=== PATIENT | female | born 1935 | race Caucasian/White ===

== ENCOUNTER 2017-04-10 17:03 | Inpatient (IN) | payer MEDICARE, BC ==
[2017-04-10] MEDS ORDERED: Phenazopyridine 95 MG Tab PO ONE (17:35)
[2017-04-10] MEDS ORDERED: Sodium Chloride 0.9% 1,000 ML IV SCH (18:15)
--- NOTE | 2017-04-10 18:19 | EDM.PDOC ---
ED HPI GENERAL MEDICAL PROBLEM - General Chief Complaint: Genitourinary Problem Stated Complaint: ILLNESS Time Seen by Provider: 04/10/17 18:13 Source of Information: Reports: Patient, Family (daughter) History Limitations: Reports: Altered Mental Status - History of Present Illness INITIAL COMMENTS - FREE TEXT/NARRATIVE: Pt being treated for UTI with Bactrim on the 10th. Became ill and stopped taking it. Was seen in the clinic yesterday. Given Rx for Cipro. Had 1 dose today. Feels extreme urinary pressure. Is very weak. Notes blood in the urine and only voiding small amounts. No fever. Daughter notes mild confusion and poor appetite for the last several days. No vomiting. Onset: Gradual Duration: Getting Worse Location: Reports: Generalized Quality: Reports: Ache, Burning, Pressure Severity: Moderate Improves with: Reports: None Worsens with: Reports: None Context: Reports: Other Associated Symptoms: Reports: Confusion, Loss of Appetite Bladder Pain Score (Numeric/FACES): 9 - Related Data Allergies Allergy/AdvReac Type Severity Reaction Status Date / Time tetracycline Allergy Dizziness Verified 04/10/17 18:58 valacyclovir [From Valtrex] Allergy Nausea Verified 04/10/17 18:58 Home Meds: Home Meds Aspirin [Halfprin] 81 mg PO DAILY 04/10/17 [History] Ciprofloxacin HCl [Cipro] 250 mg PO BID 04/10/17 [History] Lisinopril/Hydrochlorothiazide [Lisinopril-Hctz 10-12.5 mg Tab] 1 tab PO BID [History] Metoprolol Tartrate [Lopressor] 50 mg PO BID 04/10/17 [History] Simvastatin [Zocor] 40 mg PO BEDTIME 04/10/17 [History] amLODIPine [Norvasc] 2.5 mg PO BID 04/10/17 [History] Past Medical History HEENT History: Reports: Hard of Hearing, Impaired Vision Cardiovascular History: Reports: CAD, High Cholesterol, Hypertension Psychiatric History: Reports: Anxiety - Infectious Disease History Infectious Disease History: Reports: Chicken Pox, Measles, Shingles - Past Surgical History Cardiovascular Surgical History: Reports: Carotid Endarterectomy Female Surgical History: Reports: Nephrectomy Other Female Surgeries/Procedures: l nephrectomy 2006 Social & Family History - Tobacco Use Smoking Status *Q: Current Every Day Smoker Years of Tobacco use: 60 Packs/Tins Daily: 1 Used Tobacco, but Quit: No Second Hand Smoke Exposure: No - Caffeine Use Caffeine Use: Reports: Coffee, Tea - Recreational Drug Use Recreational Drug Use: No ED ROS GENERAL - Review of Systems Review Of Systems: See Below Constitutional: Reports: Malaise, Weakness, Decreased Appetite HEENT: Reports: No Symptoms Respiratory: Reports: No Symptoms Cardiovascular: Reports: No Symptoms GI/Abdominal: Reports: No Symptoms : Reports: Dysuria, Frequency, Hematuria, Urgency Musculoskeletal: Reports: Other (generalized weakness) Neurological: Reports: Confusion (mild) ED EXAM, RENAL/ - Physical Exam Exam: See Below Exam Limited By: Altered Mental Status (mild confusion) General Appearance: Alert, Mild Distress Ears: Normal External Exam, Normal Canal, Hearing Grossly Normal, Normal TMs Nose: Normal Inspection, Normal Mucosa, No Blood Throat/Mouth: Normal Inspection, Normal Lips, Normal Teeth, Normal Gums, Normal Oropharynx, Normal Voice, No Airway Compromise Head: Atraumatic, Normocephalic Neck: Normal Inspection, Supple, Non-Tender, Full Range of Motion Respiratory/Chest: No Respiratory Distress, Lungs Clear, Normal Breath Sounds, No Accessory Muscle Use, Chest Non-Tender Cardiovascular: Normal Peripheral Pulses, Regular Rate, Rhythm, No Edema, No Gallop, No JVD, No Murmur, No Rub GI/Abdominal: Distended Extremities: Normal Inspection, Normal Range of Motion, Non-Tender, Normal Capillary Refill, No Pedal Edema Neurological: Alert, Oriented, CN II-XII Intact, Normal Cognition, Normal Gait, Normal Reflexes, No Motor/Sensory Deficits Course - Vital Signs Last Recorded V/S: Last Vital Signs Temp 97.3 F 04/10/17 18:38 Pulse 97 04/10/17 18:38 Resp 20 04/10/17 18:38 BP 111/54 L 04/10/17 18:38 Pulse Ox 94 L 04/10/17 18:38 - Orders/Labs/Meds Orders: Active Orders 24 hr Category Date Time Status Patient Status Manage Transfer [TRANSFER] Routine ADT 04/10/17 18:56 Active Bladder Scan [RC] ONETIME Care 04/10/17 18:31 Active CULTURE URINE [RM] Stat Lab 04/10/17 17:34 Uncollected UA W/MICROSCOPIC [URIN] Stat Lab 04/10/17 17:33 Uncollected Sodium Chloride 0.9% [Normal Saline] 1,000 ml Med 04/10/17 18:15 Active IV .BOLUS Sodium Chloride 0.9% [Normal Saline] 1,000 ml Med 04/10/17 19:00 Active IV ASDIRECTED cefTRIAXone [Rocephin] 1 gm Med 04/10/17 19:00 Active Sodium Chloride 0.9% [Normal Saline] 50 ml IV Q24H Resuscitation Status Routine Resus Stat 04/10/17 18:57 Ordered Medication Orders Sodium Chloride (Normal Saline) 1,000 mls @ 500 mls/hr IV .BOLUS DION Last Admin: 04/10/17 18:19 Dose: 500 mls/hr Sodium Chloride (Normal Saline) 1,000 mls @ 125 mls/hr IV ASDIRECTED DION Ceftriaxone Sodium 1 gm/ (Sodium Chloride) 50 mls @ 100 mls/hr IV Q24H [facility] Labs: Laboratory Tests 04/10/17 04/10/17 04/10/17 Range/Units 17:35 17:35 18:22 WBC 17.7 H (4.5-11.0) K/uL RBC 3.45 (3.30-5.50) M/uL Hgb 9.7 L (12.0-15.0) g/dL Hct 27.6 L (36.0-48.0) % MCV 80 (80-98) fL MCH 28 (27-31) pg MCHC 35 (32-36) % Plt Count 479 H (150-400) K/uL Neut % (Auto) 91 H (36-66) % Lymph % (Auto) 5 L (24-44) % [place] % (Auto) 4 (2-6) % Eos % (Auto) 0 L (2-4) % Baso % (Auto) 0 (0-1) % Sodium 106 L* (140-148) mmol/L Potassium 5.0 (3.6-5.2) mmol/L Chloride 74 L (100-108) mmol/L Carbon Dioxide 20 L (21-32) mmol/L Anion Gap 17.0 H (5.0-14.0) mmol/L BUN 25 H (7-18) mg/dL Creatinine 1.2 H (0.6-1.0) mg/dL Est Cr Clr Drug Dosing 26.80 mL/min Estimated GFR (MDRD) 43 L (>60) Glucose 177 H (74-106) mg/dL Lactic Acid 1.7 (0.4-2.0) mmol/L Calcium 8.6 (8.5-10.1) mg/dL Meds: Medications Generic Name Dose Route Start Last Admin Trade Name Freq PRN Reason Stop Dose Admin Sodium Chloride 1,000 mls @ 500 mls/hr 04/10/17 18:15 04/10/17 18:19 Normal Saline IV 500 mls/hr .BOLUS DION Administration Sodium Chloride 1,000 mls @ 125 mls/hr 04/10/17 19:00 Normal Saline IV ASDIRECTED DION Ceftriaxone Sodium 1 gm/ 50 mls @ 100 mls/hr 04/10/17 19:00 Sodium Chloride IV Q24H DION Discontinued Medications Generic Name Dose Route Start Last Admin Trade Name Freq PRN Reason Stop Dose Admin Phenazopyridine HCl 95 mg 04/10/17 17:35 04/10/17 18:11 Urinary Pain Relief PO 04/10/17 17:36 95 mg ONETIME ONE Administration Departure - Departure Time of Disposition: 19:16 Disposition: Admitted As Inpatient 65 Condition: Fair Clinical Impression: UTI, Urinary tract infectious disease, Hyponatremia - Discharge Information Referrals: Ebenezer Armas NP [Primary Care Provider] - Forms: ED Department Discharge Additional Instructions: Labs with elevated WBC. Hyponatremia significant. Kidney function stable. UA pending. Bladder scan shows 650ml urine residual post void. IV NS initiated. Hospitalist consulted for admission. Pt agrees with plan today. Admitted for hydration, antibiotics and workup for elevated WBC. - Problem List Review Problem List Initiated/Reviewed/Updated: Yes - My Orders Last 24 Hours: My Active Orders 04/10/17 17:33 UA W/MICROSCOPIC [URIN] Stat 04/10/17 17:34 CULTURE URINE [RM] Stat 04/10/17 18:15 Sodium Chloride 0.9% [Normal Saline] 1,000 ml IV .BOLUS 04/10/17 18:31 Bladder Scan [RC] ONETIME - Assessment/Plan Last 24 Hours: My Active Orders 04/10/17 17:33 UA W/MICROSCOPIC [URIN] Stat 04/10/17 17:34 CULTURE URINE [RM] Stat 04/10/17 18:15 Sodium Chloride 0.9% [Normal Saline] 1,000 ml IV .BOLUS 04/10/17 18:31 Bladder Scan [RC] ONETIME
--- NOTE | 2017-04-10 19:06 | PCM.HP ---
H&P History of Present Illness - General Date of Service: 04/10/17 Admit Problem/Dx: Admission Diagnosis/Problem Admission Diagnosis/Problem Hyponatremia Source of Information: Patient, Family, Provider History Limitations: Reports: No Limitations - History of Present Illness Initial Comments - Free Text/Narative: Nisreen presents to the emergency room today with weakness, nausea and dehydration. She reports that she has not had much of an appetite for the past 2 weeks and it seems to be getting worse. She has had nothing to eat or drink for the past 2 days. She feels extremely weak and fatigued. She has ongoing difficulty with urinary urgency despite being on 2 different antibiotics for a urinary tract infection. She was on Bactrim for several days and then switched to ciprofloxacin yesterday but has had only one dose of this medication. She has difficulty eating because of fairly constant nausea. She does not report headache, cough, shortness of breath or abdominal pain. She has not had diarrhea. No lower extremity edema. She's not aware of any fevers or chills. Workup in the emergency room revealed severe hyponatremia with a sodium of 106. She has leukocytosis as well as signs of significant dehydration. Fortunately her kidney function is near baseline. She has hematuria probably related to a urinary tract infection. She will be admitted to the intensive care unit for further management. Bladder Pain Score (Numeric/FACES): 9 - Related Data Allergies/Adverse Reactions: Allergies Allergy/AdvReac Type Severity Reaction Status Date / Time tetracycline Allergy Dizziness Verified 04/10/17 18:58 valacyclovir [From Valtrex] Allergy Nausea Verified 04/10/17 18:58 Home Medications: Home Meds Aspirin [Halfprin] 81 mg PO DAILY 04/10/17 [History] Ciprofloxacin HCl [Cipro] 250 mg PO BID 04/10/17 [History] Lisinopril/Hydrochlorothiazide [Lisinopril-Hctz 10-12.5 mg Tab] 1 tab PO BID [History] Metoprolol Tartrate [Lopressor] 50 mg PO BID 04/10/17 [History] Simvastatin [Zocor] 40 mg PO BEDTIME 04/10/17 [History] amLODIPine [Norvasc] 2.5 mg PO BID 04/10/17 [History] Past Medical History HEENT History: Reports: Hard of Hearing, Impaired Vision Cardiovascular History: Reports: CAD, High Cholesterol, Hypertension Psychiatric History: Reports: Anxiety - Infectious Disease History Infectious Disease History: Reports: Chicken Pox, Measles, Shingles - Past Surgical History Cardiovascular Surgical History: Reports: Carotid Endarterectomy Female Surgical History: Reports: Nephrectomy Other Female Surgeries/Procedures: l nephrectomy 2006 Social & Family History - Family History Cardiac: Denies: CAD - Tobacco Use Smoking Status *Q: Current Every Day Smoker Years of Tobacco use: 60 Packs/Tins Daily: 1 Used Tobacco, but Quit: No Second Hand Smoke Exposure: No - Caffeine Use Caffeine Use: Reports: Coffee, Tea - Alcohol Use Alcohol Use History: No - Recreational Drug Use Recreational Drug Use: No H&P Review of Systems - Review of Systems: Review Of Systems: See Below Free Text/Narrative: A complete 12 point review of systems was obtained. Pertinent positives and negatives are noted in the history of present illness. All other systems were reviewed and were negative except as noted. Exam - Exam Exam: See Below - Vital Signs Vital Signs: Last Vital Signs Temp 36.3 C 04/10/17 18:38 Pulse 97 04/10/17 18:38 Resp 20 04/10/17 18:38 BP 111/54 L 04/10/17 18:38 Pulse Ox 94 L 04/10/17 18:38 Weight: 54.431 kg - Exam Quality Assessment: No: Supplemental Oxygen General: Alert, Oriented, Cooperative, Mild Distress HEENT: Conjunctiva Clear. No: Mucosa Moist & [place] (very dry), Scleral Icterus Neck: Supple, Trachea Midline. No: Lymphadenopathy Lungs: Clear to Auscultation, Normal Respiratory Effort Cardiovascular: Regular Rate, Regular Rhythm. No: Systolic Murmur GI/Abdominal Exam: Normal Bowel Sounds, Soft, Non-Tender, Distended (mild) Back Exam: Normal Inspection, Full Range of Motion Extremities: No Pedal Edema. No: Increased Warmth Peripheral Pulses: 2+: Dorsalis Pedis (L), Dorsalis Pedis (R) Skin: Warm, Dry. No: Rash Neuro Extensive - Mental Status: Alert, Nl Response to Commands Neuro Extensive - Motor, Sensory, Reflexes: CN II-XII Intact. No: Dysarthria, Abnormal Motor, Tremor Psychiatric: Alert, Normal Affect - Patient Data Lab Results Last 24 hrs: Laboratory Results - last 24 hr 04/10/17 04/10/17 04/10/17 Range/Units 17:35 17:35 18:22 WBC 17.7 H (4.5-11.0) K/uL RBC 3.45 (3.30-5.50) M/uL Hgb 9.7 L (12.0-15.0) g/dL Hct 27.6 L (36.0-48.0) % MCV 80 (80-98) fL MCH 28 (27-31) pg MCHC 35 (32-36) % Plt Count 479 H (150-400) K/uL Neut % (Auto) 91 H (36-66) % Lymph % (Auto) 5 L (24-44) % [place] % (Auto) 4 (2-6) % Eos % (Auto) 0 L (2-4) % Baso % (Auto) 0 (0-1) % Sodium 106 L* (140-148) mmol/L Potassium 5.0 (3.6-5.2) mmol/L Chloride 74 L (100-108) mmol/L Carbon Dioxide 20 L (21-32) mmol/L Anion Gap 17.0 H (5.0-14.0) mmol/L BUN 25 H (7-18) mg/dL Creatinine 1.2 H (0.6-1.0) mg/dL Est Cr Clr Drug Dosing 26.80 mL/min Estimated GFR (MDRD) 43 L (>60) Glucose 177 H (74-106) mg/dL Lactic Acid 1.7 (0.4-2.0) mmol/L Calcium 8.6 (8.5-10.1) mg/dL Result Diagrams: 04/10/17 17:35 04/10/17 17:35 *Q Meaningful Use (ADM) - VTE *Q VTE Criteria *Q: - VTE Risk Assess *Q Each Risk Factor Represents 1 Point: None Total Score 1 Point Risk Factors: 0 Each Risk Factor Represents 2 Points: None Total Score 2 Point Risk Factors: 0 Each Risk Factor Represents 3 Points: Age 75 Years or Greater Total Score 3 Point Risk Factors: 3 Each Risk Factor Represents 5 Points: None Total Score 5 Point Risk Factors: 0 Venous Thromboembolism Risk Factor Score *Q: 3 - Stroke *Q Stroke Criteria *Q: - AMI *Q AMI Criteria *Q: Problem List Initiated/Reviewed/Updated: Yes Orders Last 24hrs: Active Orders 24 hr Category Date Time Status Patient Status Manage Transfer [TRANSFER] Routine ADT 04/10/17 18:56 Ordered Bladder Scan [RC] ONETIME Care 04/10/17 18:31 Active CULTURE URINE [RM] Stat Lab 04/10/17 17:34 Uncollected UA W/MICROSCOPIC [URIN] Stat Lab 04/10/17 17:33 Uncollected Sodium Chloride 0.9% [Normal Saline] 1,000 ml Med 04/10/17 18:15 Active IV .BOLUS Sodium Chloride 0.9% [Normal Saline] 1,000 ml Med 04/10/17 19:00 Active IV ASDIRECTED cefTRIAXone [Rocephin] 1 gm Med 04/10/17 19:00 Active Sodium Chloride 0.9% [Normal Saline] 50 ml IV Q24H Resuscitation Status Routine Resus Stat 04/10/17 18:57 Ordered Medication Orders Sodium Chloride (Normal Saline) 1,000 mls @ 500 mls/hr IV .BOLUS DION Last Admin: 04/10/17 18:19 Dose: 500 mls/hr Sodium Chloride (Normal Saline) 1,000 mls @ 125 mls/hr IV ASDIRECTED DION Ceftriaxone Sodium 1 gm/ (Sodium Chloride) 50 mls @ 100 mls/hr IV Q24H DION Assessment/Plan Comment:: Assessment and plan - Severe hyponatremia - she is hypovolemic at this time but there could be contribution from interstitial nephritis with recent Bactrim use as well as possibly her MARINE inhibitor and/or hydrochlorothiazide. She is a longtime smoker and SIADH related to lung cancer is also a possibility but chest x-ray is pending. She needs volume resuscitation and repeat testing. Nausea and weakness are likely multifactorial with her hyponatremia and the bladder infection. -Sodium chloride 125 mL per hour -Repeat labs in the morning -Chest x-ray to rule out thoracic malignancy -Discontinue lisinopril/hydrochlorothiazide -Change antibiotics to more renal friendly ceftriaxone as below Acute cystitis, persistent - patient appears to have failed outpatient therapy at this time. She has oscar hematuria at this point. A Sim catheter has been placed. She has recently been on Bactrim and ciprofloxacin. She does not appear to be septic at this time. -Urine culture -Empiric ceftriaxone -Continue Sim catheter until urine clears up Stage III chronic kidney disease - Creatinine level is near baseline at this time. Maintenance issues - - DVT prophylaxis - enoxaparin - GI prophylaxis - not indicated - Nutrition - full liquids - Sim catheter - placed in the emergency room for strict intake and output monitoring CODE STATUS - full code Admission justification - This patient will be admitted for inpatient services and is medically appropriate meeting medical necessity for inpatient admission as outlined in my documentation. I reasonably expect the patient will require inpatient services that span a period time over 2 midnights. I reasonably expect this patient to be discharged or transferred within 96 hours after admission to the [facility]. Disposition - anticipate discharge home after the hospital stay Primary care physician - Ebenezer Galindo M.D.
[2017-04-10] MEDS: cefTRIAXone 1 GM in Sodium Chloride 0.9% 50 ML IV SCH (19:26)
[2017-04-10] MEDS ORDERED: Acetaminophen 325 MG Tab PO PRN (19:28)
[2017-04-10] MEDS ORDERED: Ondansetron 4 MG/2 ML SDV IV PRN (19:28)
[2017-04-10] MEDS ORDERED: Ondansetron 4 MG Tab.DIS PO PRN (19:28)
[2017-04-10] MEDS ORDERED: LORazepam 2 MG/ML MDV IVPUSH PRN (19:28)
[2017-04-10] MEDS ORDERED: Polyethylene Glycol 3350 Powder 17 GM Packet PO PRN (19:28)
[2017-04-10] MEDS ORDERED: Enoxaparin 30 MG/0.3 ML Syringe SUBCUT ONE (20:30)
[2017-04-10] MEDS: Sodium Chloride 0.9% 1,000 ML IV SCH (20:48)
[2017-04-10] MEDS: Sodium Chloride 0.9% 500 ML IV ONE (21:23)
[2017-04-10] MEDS: Nicotine 14 MG/24 Hr Patch TRDERM SCH ×2 (21:31→22:53)
[2017-04-11] MEDS ORDERED: Sodium Chloride 0.9% 500 ML IV SCH (02:45)
[2017-04-11] MEDS: Sodium Chloride 0.9% 500 ML IV ONE ×2 (03:37→03:39)
[2017-04-11] MEDS: Sodium Chloride 0.9% 1,000 ML IV SCH ×2 (04:35→12:36)
[2017-04-11] MEDS: Nicotine 14 MG/24 Hr Patch TRDERM SCH (08:27)
[2017-04-11] MEDS: Enoxaparin 30 MG/0.3 ML Syringe SUBCUT SCH ×2 (08:28→09:19)
[2017-04-11] MEDS: Aspirin 81 MG Tab.EC PO SCH (08:29)
--- NOTE | 2017-04-11 09:15 | PCM.PN ---
- General Info Date of Service: 04/11/17 Functional Status: Reports: Pain Controlled, Tolerating Diet - Review of Systems General: Reports: Weakness Genitourinary: Reports: Hematuria Systems Review Comment:: No acute events last night since admission. She did have some blood pressures that were lower and she did require a couple of additional fluid boluses. Blood pressure this morning are on the low side of normal. She feels a little stronger and was able to eat a little bit of food. Ongoing oscar hematuria but it seems to be lightening up a little bit. Sodium level has improved significantly since yesterday. Hemoglobin has dropped overnight to 7.8. - Patient Data Vitals - Most Recent: Last Vital Signs Temp 36.0 C 04/11/17 08:00 Pulse 107 H 04/11/17 08:00 Resp 24 H 04/11/17 08:00 BP 93/54 L 04/11/17 08:00 Pulse Ox 97 04/11/17 08:00 Weight - Most Recent: 55.61 kg I&O - Last 24 Hours: Intake & Output 04/10/17 04/11/17 04/11/17 22:59 06:59 14:59 Intake Total 500 2115 240 Output Total 700 2450 950 Balance -200 -335 -710 Lab Results Last 24 Hours: Laboratory Results - last 24 hr 04/10/17 04/11/17 04/11/17 Range/Units 19:18 05:24 05:24 WBC 8.9 (4.5-11.0) K/uL RBC 2.75 L (3.30-5.50) M/uL Hgb 7.8 L (12.0-15.0) g/dL Hct 22.5 L (36.0-48.0) % MCV 82 (80-98) fL MCH 28 (27-31) pg MCHC 35 (32-36) % Plt Count 325 (150-400) K/uL Sodium 123 L (140-148) mmol/L Potassium 3.8 (3.6-5.2) mmol/L Chloride 90 L (100-108) mmol/L Carbon Dioxide 24 (21-32) mmol/L Anion Gap 12.8 (5.0-14.0) mmol/L BUN 15 (7-18) mg/dL Creatinine 0.8 (0.6-1.0) mg/dL Est Cr Clr Drug Dosing 40.21 mL/min Estimated GFR (MDRD) > 60 (>60) Glucose 84 (74-106) mg/dL Calcium 7.7 L (8.5-10.1) mg/dL Urine Color Red Urine Appearance Turbid Urine pH 6.0 (4.5-8.0) Ur Specific [place] 1.015 (1.008-1.030) Urine Protein 500 H (NEGATIVE) mg/dL Urine Glucose (UA) Normal (NEGATIVE) mg/dL Urine Ketones Negative (NEGATIVE) mg/dL Urine Occult Blood Large (NEGATIVE) Urine Nitrite Negative (NEGATIVE) Urine Bilirubin Negative (NEGATIVE) Urine Urobilinogen Normal (NORMAL) mg/dL Ur Leukocyte Esterase Small (NEGATIVE) Urine RBC Packed H (0-5) Urine WBC 5-10 H (0-5) Ur Epithelial Cells Moderate Amorphous Sediment Not seen Urine Bacteria Few Urine Mucus Not seen Med Orders - Current: Current Medications Acetaminophen (Tylenol) 650 mg PO Q4H PRN PRN Reason: Pain (Mild 1-3)/fever Last Admin: 04/10/17 22:54 Dose: 650 mg Aspirin (Halfprin) 81 mg PO DAILY [facility] Last Admin: 04/11/17 08:29 Dose: 81 mg Sodium Chloride (Normal Saline) 1,000 mls @ 125 mls/hr IV ASDIRECTED [facility] Last Admin: 04/11/17 04:35 Dose: 125 mls/hr Ceftriaxone Sodium 1 gm/ (Sodium Chloride) 50 mls @ 100 mls/hr IV Q24H [facility] Last Admin: 04/10/17 19:26 Dose: 100 mls/hr Lorazepam (Ativan) 0.5 mg IVPUSH Q4H PRN PRN Reason: Nausea/Vomiting Metoprolol Tartrate (Lopressor) 12.5 mg PO Q12HR [facility] Nicotine (Habitrol) 14 mg TRDERM DAILY [facility] Last Admin: 04/11/17 08:27 Dose: 14 mg Ondansetron HCl (Zofran Odt) 4 mg PO Q6H PRN PRN Reason: Nausea able to take PO Ondansetron HCl (Zofran) 4 mg IV Q6H PRN PRN Reason: Nausea/Vomiting Polyethylene Glycol (Miralax) 17 gm PO DAILY PRN PRN Reason: Constipation Discontinued Medications Enoxaparin Sodium (Lovenox) 30 mg SUBCUT DAILY [facility] Last Admin: 04/11/17 08:28 Dose: 30 mg Enoxaparin Sodium (Lovenox) 30 mg SUBCUT ONETIME ONE Stop: 04/10/17 20:31 Last Admin: 04/10/17 20:52 Dose: 30 mg Sodium Chloride (Normal Saline) 1,000 mls @ 500 mls/hr IV .BOLUS [facility] Last Admin: 04/10/17 18:19 Dose: 500 mls/hr Sodium Chloride (Normal Saline) 500 mls @ 500 mls/hr IV .BOLUS ONE Stop: 04/10/17 21:56 Last Admin: 04/11/17 03:39 Dose: 500 mls/hr Sodium Chloride (Normal Saline) 500 mls @ 500 mls/hr IV ASDIRECTED [facility] Stop: 04/11/17 03:46 Phenazopyridine HCl (Urinary Pain Relief) 95 mg PO ONETIME ONE Stop: 04/10/17 17:36 Last Admin: 04/10/17 18:11 Dose: 95 mg - Exam Quality Assessment: Supplemental Oxygen General: Alert, Oriented, Cooperative, No Acute Distress Neck: Supple Lungs: Normal Respiratory Effort Cardiovascular: Regular Rhythm, Tachycardia GI/Abdominal Exam: Soft, Non-Tender, No Distention Extremities: No Pedal Edema. No: Increased Warmth Skin: Warm, Dry Psy/Mental Status: Alert, Normal Affect - Problem List Review Problem List Initiated/Reviewed/Updated: Yes - My Orders Last 24 Hours: My Active Orders 04/10/17 18:57 Resuscitation Status Routine 04/10/17 19:28 Patient Status [ADT] Routine Bedrest Bedside Commode [RC] ASDIRECTED Cardiac Monitoring [RC] CONTINUOUS Insert Sim Catheter [Insert Urinary Catheter] [OM.PC] Q24H Intake and Output [RC] QSHIFT Notify Provider Vital Signs [RC] ASDIRECTED Oxygen Therapy [RC] PRN Up With Assistance [RC] ASDIRECTED Urinary Catheter Assessment [RC] ASDIRECTED VTE/DVT Education [RC] Per Unit Routine Vital Signs [RC] Q2H Chest 1V Frontal [CR] Routine Acetaminophen [Tylenol] 650 mg PO Q4H PRN LORazepam [Ativan] 0.5 mg IVPUSH Q4H PRN Nicotine [Habitrol] 14 mg TRDERM DAILY Ondansetron [Zofran ODT] 4 mg PO Q6H PRN Ondansetron [Zofran] 4 mg IV Q6H PRN Polyethylene Glycol 3350 [MiraLAX] 17 gm PO DAILY PRN 04/10/17 Dinner Full Liquid Diet [DIET] 04/11/17 03:30 Bladder Irrigation [RC] PRN 04/11/17 07:00 PT Evaluation and Treatment [CONS] Routine 04/11/17 09:08 RED BLOOD CELLS LP [BBK] Routine TYPE AND SCREEN [BBK] Routine 04/11/17 09:10 Chest Abdomen Pelvis wo Cont [CT] Routine 04/11/17 09:15 Metoprolol Tartrate [Lopressor] 12.5 mg PO Q12HR 04/11/17 16:00 HGB [HEMOGLOBIN] [HEME] Timed 04/12/17 05:00 BASIC METABOLIC PANEL,BMP [CHEM] Timed CBC W/O DIFF,HEMOGRAM [HEME] Timed (1) - Plan Plan:: Assessment and plan - Severe hyponatremia - likely hypovolemic with possible contribution from medications. Level has improved with fluid challenges. Clinically she is looking better today. No evidence for lung cancer. -Sodium chloride 125 mL per hour -Repeat labs in the morning -Discontinue lisinopril/hydrochlorothiazide -Continue ceftriaxone as below Acute cystitis with oscar hematuria - urine culture is pending. CT of the abdomen and pelvis this morning showed a 4 x 5 cm mass or hemorrhage in the right side of the bladder as well as moderate hydronephrosis and hydroureter. Creatinine level has improved compared to yesterday and is in the normal range. She is tolerating current antibiotics. Urine culture is pending at this time. I did discuss the case with urology on-call at [facility]. Outpatient follow-up was felt to be safe as long as creatinine remains normal and there is no evidence for sepsis. -Follow-up Urine culture -Empiric ceftriaxone -Continue Sim catheter until urine clears up Stage III chronic kidney disease - Creatinine level has improved with hydration. Maintenance issues - - DVT prophylaxis - mechanical with active hemorrhage into the bladder - GI prophylaxis - not indicated - Nutrition - full liquids - Sim catheter - placed in the emergency room for strict intake and output monitoring as well as management of oscar hematuria Disposition - anticipate discharge home after the hospital stay Primary care physician - Ebenezer Galindo M.D.
[2017-04-11] MEDS: Metoprolol Tartrate 25 MG Tab PO SCH ×2 (09:24→21:14)
[2017-04-11] MEDS: cefTRIAXone 1 GM in Sodium Chloride 0.9% 50 ML IV SCH (19:44)
[2017-04-12] MEDS: Sodium Chloride 0.9% 1,000 ML IV SCH (05:01)
[2017-04-12] MEDS: Nicotine 14 MG/24 Hr Patch TRDERM SCH (08:16)
[2017-04-12] MEDS: Metoprolol Tartrate 25 MG Tab PO SCH ×2 (08:17→20:44)
[2017-04-12] MEDS: Aspirin 81 MG Tab.EC PO SCH (08:17)
[2017-04-12] MEDS ORDERED: Sodium Chloride 0.9% 1,000 ML IV SCH (09:00)
--- NOTE | 2017-04-12 09:01 | PCM.PN ---
- General Info Date of Service: 04/12/17 Functional Status: Reports: Pain Controlled, Tolerating Diet - Review of Systems General: Reports: Weakness Gastrointestinal: Denies: Abdominal Pain Genitourinary: Reports: Hematuria Systems Review Comment:: No acute events overnight. Blood pressure remains on the low side but has been stable. Urine seems to be clearing with less hematuria noted though there still is a pink tint to the urine. She does not feel short of breath, does not have any edema and does not have any abdominal pain. Hemoglobin has been up and down a little bit and the level today is similar to yesterday's level. She has not had any fevers. Urine culture is not growing bacteria at this time. - Patient Data Vitals - Most Recent: Last Vital Signs Temp 36.4 C 04/12/17 03:00 Pulse 104 H 04/12/17 08:17 Resp 20 04/12/17 08:00 BP 91/47 L 04/12/17 08:17 Pulse Ox 94 L 04/12/17 08:00 Weight - Most Recent: 55.61 kg I&O - Last 24 Hours: Intake & Output 04/11/17 04/12/17 04/12/17 22:59 06:59 14:59 Intake Total 2145 1509 240 Output Total 1450 1250 Balance 695 259 240 Lab Results Last 24 Hours: Laboratory Results - last 24 hr 04/11/17 04/11/17 04/12/17 Range/Units 09:08 16:28 05:36 WBC 6.3 (4.5-11.0) K/uL RBC 2.76 L (3.30-5.50) M/uL Hgb 9.1 L 7.9 L (12.0-15.0) g/dL Hct 23.2 L (36.0-48.0) % MCV 84 (80-98) fL MCH 29 (27-31) pg MCHC 34 (32-36) % Plt Count 339 (150-400) K/uL Sodium (140-148) mmol/L Potassium (3.6-5.2) mmol/L Chloride (100-108) mmol/L Carbon Dioxide (21-32) mmol/L Anion Gap (5.0-14.0) mmol/L BUN (7-18) mg/dL Creatinine (0.6-1.0) mg/dL Est Cr Clr Drug Dosing mL/min Estimated GFR (MDRD) (>60) Glucose (74-106) mg/dL Calcium (8.5-10.1) mg/dL Blood Type B POSITIVE Gel Antibody Screen Negative Crossmatch See Detail 04/12/17 Range/Units 05:36 WBC (4.5-11.0) K/uL RBC (3.30-5.50) M/uL Hgb (12.0-15.0) g/dL Hct (36.0-48.0) % MCV (80-98) fL MCH (27-31) pg MCHC (32-36) % Plt Count (150-400) K/uL Sodium 129 L (140-148) mmol/L Potassium 3.6 (3.6-5.2) mmol/L Chloride 97 L (100-108) mmol/L Carbon Dioxide 23 (21-32) mmol/L Anion Gap 12.6 (5.0-14.0) mmol/L BUN 6 L D (7-18) mg/dL Creatinine 0.7 (0.6-1.0) mg/dL Est Cr Clr Drug Dosing 45.95 mL/min Estimated GFR (MDRD) > 60 (>60) Glucose 73 L (74-106) mg/dL Calcium 7.7 L (8.5-10.1) mg/dL Blood Type Gel Antibody Screen Crossmatch [place] Results Last 24 Hours: Microbiology 04/10/17 19:18 Urine Culture - Preliminary Urine, Catheterized NO GROWTH AFTER 1 DAY Med Orders - Current: Current Medications Acetaminophen (Tylenol) 650 mg PO Q4H PRN PRN Reason: Pain (Mild 1-3)/fever Last Admin: 04/10/17 22:54 Dose: 650 mg Aspirin (Halfprin) 81 mg PO DAILY [facility] Last Admin: 04/12/17 08:17 Dose: 81 mg Ceftriaxone Sodium 1 gm/ (Sodium Chloride) 50 mls @ 100 mls/hr IV Q24H [facility] Last Admin: 04/11/17 19:44 Dose: 100 mls/hr Sodium Chloride (Normal Saline) 1,000 mls @ 100 mls/hr IV ASDIRECTED [facility] Lorazepam (Ativan) 0.5 mg IVPUSH Q4H PRN PRN Reason: Nausea/Vomiting Metoprolol Tartrate (Lopressor) 12.5 mg PO BID [facility] Last Admin: 04/12/17 08:17 Dose: 12.5 mg Nicotine (Habitrol) 14 mg TRDERM DAILY [facility] Last Admin: 04/12/17 08:16 Dose: 14 mg Ondansetron HCl (Zofran Odt) 4 mg PO Q6H PRN PRN Reason: Nausea able to take PO Ondansetron HCl (Zofran) 4 mg IV Q6H PRN PRN Reason: Nausea/Vomiting Polyethylene Glycol (Miralax) 17 gm PO DAILY PRN PRN Reason: Constipation Potassium Chloride (Klor-Con M20) 40 meq PO ONETIME ONE Stop: 04/12/17 08:58 Discontinued Medications Enoxaparin Sodium (Lovenox) 30 mg SUBCUT DAILY [facility] Last Admin: 04/11/17 09:19 Dose: Not Given Enoxaparin Sodium (Lovenox) 30 mg SUBCUT ONETIME ONE Stop: 04/10/17 20:31 Last Admin: 04/10/17 20:52 Dose: 30 mg Sodium Chloride (Normal Saline) 1,000 mls @ 500 mls/hr IV .BOLUS [facility] Last Admin: 04/10/17 18:19 Dose: 500 mls/hr Sodium Chloride (Normal Saline) 1,000 mls @ 125 mls/hr IV ASDIRECTED [facility] Last Admin: 04/12/17 05:01 Dose: 125 mls/hr Sodium Chloride (Normal Saline) 500 mls @ 500 mls/hr IV .BOLUS ONE Stop: 04/10/17 21:56 Last Admin: 04/11/17 03:39 Dose: 500 mls/hr Sodium Chloride (Normal Saline) 500 mls @ 500 mls/hr IV ASDIRECTED [facility] Stop: 04/11/17 03:46 Phenazopyridine HCl (Urinary Pain Relief) 95 mg PO ONETIME ONE Stop: 04/10/17 17:36 Last Admin: 04/10/17 18:11 Dose: 95 mg - Exam Quality Assessment: No: Supplemental Oxygen General: Alert, Oriented, Cooperative, No Acute Distress Neck: Supple Lungs: Clear to Auscultation, Normal Respiratory Effort Cardiovascular: Regular Rhythm, Tachycardia GI/Abdominal Exam: Soft, Non-Tender, No Distention Extremities: No Pedal Edema. No: Increased Warmth Skin: Warm, Dry Psy/Mental Status: Alert, Normal Affect - Problem List Review Problem List Initiated/Reviewed/Updated: Yes - My Orders Last 24 Hours: My Active Orders 04/11/17 09:08 PATIENT RETYPE [BBK] Routine RED BLOOD CELLS LP [BBK] Routine TYPE AND SCREEN [BBK] Routine 04/11/17 09:10 Chest Abdomen Pelvis wo Cont [CT] Routine 04/11/17 09:30 Metoprolol Tartrate [Lopressor] 12.5 mg PO BID 04/11/17 15:59 SCD [Sequential Compression Device] [OM.PC] Routine 04/12/17 08:57 Potassium Chloride [Klor-Con M20] 40 meq PO ONETIME ONE Transfuse Red Blood Cells [COMM] Routine 04/12/17 09:00 Sodium Chloride 0.9% [Normal Saline] 1,000 ml IV ASDIRECTED 04/12/17 Lunch Regular Diet [DIET] 04/13/17 05:00 BASIC METABOLIC PANEL,BMP [CHEM] Timed CBC W/O DIFF,HEMOGRAM [HEME] Timed (1) - Plan Plan:: Assessment and plan - Severe hyponatremia - likely hypovolemic with possible contribution from medications. Level has continued to improve with IV fluids. Blood pressure does remain on the low side and antihypertensives remain on hold. -Sodium chloride 100 mL per hour -Repeat labs in the morning -Discontinue lisinopril/hydrochlorothiazide -Continue ceftriaxone as below -Physical therapy for weakness Acute cystitis with oscar hematuria - urine culture is pending. CT of the abdomen and pelvis this morning showed a 4 x 5 cm mass or hemorrhage in the right side of the bladder as well as moderate hydronephrosis and hydroureter. Kidney function is normal at this time. There is no evidence for sepsis. I did discuss the abnormal CT with urology at [facility] and outpatient follow- up once she has stabilized was recommended. Dr. Sullivan thought she would likely need a trip to the operating room for exploration and management of the mass versus hemorrhage. -Follow-up Urine culture -Empiric ceftriaxone -Continue Sim catheter until urine clears up -Early urology follow-up after hospital discharge unless things worsen Stage III chronic kidney disease - Creatinine level has continued to improve with hydration. Maintenance issues - - DVT prophylaxis - mechanical with active hemorrhage into the bladder - GI prophylaxis - not indicated - Nutrition - full liquids - Sim catheter - placed in the emergency room for strict intake and output monitoring as well as management of oscar hematuria Disposition - anticipate discharge home after the hospital stay Primary care physician - Ebenezer Galindo M.D.
[2017-04-12] MEDS ORDERED: Potassium Chloride 20 MEQ Tab.ER PO ONE (09:30)
[2017-04-12] MEDS: cefTRIAXone 1 GM in Sodium Chloride 0.9% 50 ML IV SCH (19:43)
[2017-04-13] MEDS ORDERED: Potassium Chloride 20 MEQ Tab.ER PO ONE (08:30)
[2017-04-13] MEDS: Metoprolol Tartrate 25 MG Tab PO SCH ×2 (08:34→20:45)
[2017-04-13] MEDS: Aspirin 81 MG Tab.EC PO SCH (08:35)
[2017-04-13] MEDS: Nicotine 14 MG/24 Hr Patch TRDERM SCH (08:35)
--- NOTE | 2017-04-13 09:01 | CR ---
Chest 1V Frontal INDICATION: hyponatremia, r/o malignancy FINDINGS: Hyperinflation. Slight blunting of the costophrenic angles. Aortic calcification. Chest ot herwise negative.
--- NOTE | 2017-04-13 09:40 | PCM.PN ---
- General Info Date of Service: 04/13/17 Functional Status: Reports: Pain Controlled, Tolerating Diet, Ambulating - Review of Systems General: Reports: No Symptoms Pulmonary: Reports: No Symptoms Cardiovascular: Reports: No Symptoms Gastrointestinal: Reports: No Symptoms Genitourinary: Reports: Hematuria Systems Review Comment:: This patient has been fairly stable since yesterday, she is status post transfusion of one unit of red blood cells. Continues to have intermittent gross hematuria, but energy level has improved following transfusion. Sodium level is stable over the past 24 hours at 128. Urine culture has been negative and she has remained afebrile. - Patient Data Vitals - Most Recent: Last Vital Signs Temp 98.1 F 04/13/17 08:00 Pulse 108 H 04/13/17 08:34 Resp 16 04/13/17 08:00 BP 118/64 04/13/17 08:34 Pulse Ox 96 04/13/17 08:00 Weight - Most Recent: 122 lb 9.585 oz I&O - Last 24 Hours: Intake & Output 04/12/17 04/13/17 04/13/17 22:59 06:59 14:59 Intake Total 1405 1632 Output Total 2450 1000 Balance -1045 632 Lab Results Last 24 Hours: Laboratory Results - last 24 hr 04/11/17 04/13/17 04/13/17 Range/Units 09:08 05:00 05:00 WBC 9.3 (4.5-11.0) K/uL RBC 3.70 (3.30-5.50) M/uL Hgb 10.6 L D (12.0-15.0) g/dL Hct 31.2 L (36.0-48.0) % MCV 84 (80-98) fL MCH 29 (27-31) pg MCHC 34 (32-36) % Plt Count 307 (150-400) K/uL Sodium 128 L (140-148) mmol/L Potassium 3.5 L (3.6-5.2) mmol/L Chloride 96 L (100-108) mmol/L Carbon Dioxide 23 (21-32) mmol/L Anion Gap 12.5 (5.0-14.0) mmol/L BUN 4 L (7-18) mg/dL Creatinine 0.7 (0.6-1.0) mg/dL Est Cr Clr Drug Dosing 45.95 mL/min Estimated GFR (MDRD) > 60 (>60) Glucose 72 L (74-106) mg/dL Calcium 7.7 L (8.5-10.1) mg/dL Blood Type B POSITIVE Gel Antibody Screen Negative Crossmatch See Detail [place] Results Last 24 Hours: Microbiology 04/10/17 19:18 Urine Culture - Final Urine, Catheterized NO GROWTH AFTER 2 DAYS Med Orders - Current: Current Medications Acetaminophen (Tylenol) 650 mg PO Q4H PRN PRN Reason: Pain (Mild 1-3)/fever Last Admin: 04/10/17 22:54 Dose: 650 mg Aspirin (Halfprin) 81 mg PO DAILY [facility] Last Admin: 04/13/17 08:35 Dose: 81 mg Ceftriaxone Sodium 1 gm/ (Sodium Chloride) 50 mls @ 100 mls/hr IV Q24H [facility] Last Admin: 04/12/17 19:43 Dose: 100 mls/hr Sodium Chloride (Normal Saline) 1,000 mls @ 100 mls/hr IV ASDIRECTED [facility] Last Admin: 04/13/17 02:16 Dose: 100 mls/hr Lorazepam (Ativan) 0.5 mg IVPUSH Q4H PRN PRN Reason: Nausea/Vomiting Metoprolol Tartrate (Lopressor) 12.5 mg PO BID [facility] Last Admin: 04/13/17 08:34 Dose: 12.5 mg Nicotine (Habitrol) 14 mg TRDERM DAILY [facility] Last Admin: 04/13/17 08:35 Dose: 14 mg Ondansetron HCl (Zofran Odt) 4 mg PO Q6H PRN PRN Reason: Nausea able to take PO Ondansetron HCl (Zofran) 4 mg IV Q6H PRN PRN Reason: Nausea/Vomiting Polyethylene Glycol (Miralax) 17 gm PO DAILY PRN PRN Reason: Constipation Discontinued Medications Enoxaparin Sodium (Lovenox) 30 mg SUBCUT DAILY [facility] Last Admin: 04/11/17 09:19 Dose: Not Given Enoxaparin Sodium (Lovenox) 30 mg SUBCUT ONETIME ONE Stop: 04/10/17 20:31 Last Admin: 04/10/17 20:52 Dose: 30 mg Sodium Chloride (Normal Saline) 1,000 mls @ 500 mls/hr IV .BOLUS [facility] Last Admin: 04/10/17 18:19 Dose: 500 mls/hr Sodium Chloride (Normal Saline) 1,000 mls @ 125 mls/hr IV ASDIRECTED [facility] Last Admin: 04/12/17 05:01 Dose: 125 mls/hr Sodium Chloride (Normal Saline) 500 mls @ 500 mls/hr IV .BOLUS ONE Stop: 04/10/17 21:56 Last Admin: 04/11/17 03:39 Dose: 500 mls/hr Sodium Chloride (Normal Saline) 500 mls @ 500 mls/hr IV ASDIRECTED [facility] Stop: 04/11/17 03:46 Phenazopyridine HCl (Urinary Pain Relief) 95 mg PO ONETIME ONE Stop: 04/10/17 17:36 Last Admin: 04/10/17 18:11 Dose: 95 mg Potassium Chloride (Klor-Con M20) 40 meq PO ONETIME ONE Stop: 04/12/17 09:31 Last Admin: 04/12/17 10:22 Dose: 40 meq Potassium Chloride (Klor-Con M20) 40 meq PO ONETIME ONE Stop: 04/13/17 08:31 Last Admin: 04/13/17 08:35 Dose: 40 meq - Exam Quality Assessment: Supplemental Oxygen, Urine Catheter General: Alert, Oriented, Cooperative, No Acute Distress Lungs: Clear to Auscultation, Normal Respiratory Effort Cardiovascular: Regular Rate, Regular Rhythm, No Murmurs GI/Abdominal Exam: Normal Bowel Sounds, Soft, Non-Tender, No Distention Extremities: Normal Inspection, No Pedal Edema - Problem List Review Problem List Initiated/Reviewed/Updated: Yes - My Orders Last 24 Hours: My Active Orders 04/13/17 09:21 Patient Status Manage Transfer [TRANSFER] Routine - Plan Plan:: Assessment and plan - Severe hyponatremia - likely hypovolemic with possible contribution from medications. Sodium level has been stable over the past 24 hours. -Saline lock IV -Repeat labs in the morning -Discontinue lisinopril/hydrochlorothiazide -Continue ceftriaxone as below -Physical therapy for weakness Acute cystitis with oscar hematuria - urine culture is negative thus far. CT of the abdomen and pelvis this morning showed a 4 x 5 cm mass or hemorrhage in the right side of the bladder as well as moderate hydronephrosis and hydroureter. Kidney function is normal at this time. There is no evidence for sepsis. I did discuss the abnormal CT with urology at [facility] and outpatient follow- up once she has stabilized was recommended. Dr. Sullivan thought she would likely need a trip to the operating room for exploration and management of the mass versus hemorrhage. -Follow-up Urine culture -Omnicef 300 mg by mouth twice a day -Continue Sim catheter until urine clears up -Early urology follow-up after hospital discharge unless things worsen Stage III chronic kidney disease - Creatinine level has continued to improve with hydration. Maintenance issues - - DVT prophylaxis - mechanical with active hemorrhage into the bladder - GI prophylaxis - not indicated - Nutrition - full liquids - Sim catheter - placed in the emergency room for strict intake and output monitoring as well as management of oscar hematuria Disposition - anticipate discharge home tomorrow Primary care physician - Ebenezer Armas NP
[2017-04-13] MEDS: amLODIPine 2.5 MG Tab PO SCH ×2 (10:22→20:46)
[2017-04-13] MEDS: Cefdinir 300 MG Cap PO SCH ×2 (10:22→20:46)
[2017-04-13] MEDS: Simvastatin 20 MG Tab PO SCH (20:47)
[2017-04-14] MEDS: Cefdinir 300 MG Cap PO SCH ×2 (08:07→21:31)
[2017-04-14] MEDS: Metoprolol Tartrate 25 MG Tab PO SCH ×2 (08:07→21:32)
[2017-04-14] MEDS: Aspirin 81 MG Tab.EC PO SCH (08:07)
[2017-04-14] MEDS: amLODIPine 2.5 MG Tab PO SCH ×2 (08:07→21:32)
[2017-04-14] MEDS: Nicotine 14 MG/24 Hr Patch TRDERM SCH (08:08)
[2017-04-14] MEDS: Lisinopril 10 MG Tab PO SCH (10:46)
--- NOTE | 2017-04-14 18:00 | PCM.PN ---
- General Info Date of Service: 04/14/17 Functional Status: Reports: Pain Controlled, Tolerating Diet - Review of Systems General: Reports: Weakness. Denies: Fever, Chills Pulmonary: Reports: No Symptoms Cardiovascular: Reports: No Symptoms Gastrointestinal: Reports: No Symptoms Genitourinary: Reports: Hematuria Systems Review Comment:: This patient has done well over the past 24 hours, although she continues to experience gross hematuria. I'll signs have remained stable and she has been afebrile. Hemoglobin has dropped slightly from yesterday and her sodium level is also decreased from what it had been yesterday since IV fluids were discontinued. - Patient Data Vitals - Most Recent: Last Vital Signs Temp 98.6 F 04/14/17 14:25 Pulse 86 04/14/17 14:25 Resp 15 04/14/17 14:25 BP 145/68 H 04/14/17 14:25 Pulse Ox 96 04/14/17 14:25 Weight - Most Recent: 122 lb 9.585 oz I&O - Last 24 Hours: Intake & Output 04/14/17 04/14/17 04/14/17 06:59 14:59 22:59 Intake Total 240 960 Output Total 275 550 Balance -35 410 Lab Results Last 24 Hours: Laboratory Results - last 24 hr 04/14/17 04/14/17 Range/Units 04:50 04:50 WBC 8.4 (4.5-11.0) K/uL RBC 3.28 L (3.30-5.50) M/uL Hgb 9.5 L (12.0-15.0) g/dL Hct 27.9 L (36.0-48.0) % MCV 85 (80-98) fL MCH 29 (27-31) pg MCHC 34 (32-36) % Plt Count 311 (150-400) K/uL Neut % (Auto) 63 (36-66) % Lymph % (Auto) 26 (24-44) % [place] % (Auto) 9 H (2-6) % Eos % (Auto) 2 (2-4) % Baso % (Auto) 0 (0-1) % Sodium 125 L (140-148) mmol/L Potassium 4.2 (3.6-5.2) mmol/L Chloride 94 L (100-108) mmol/L Carbon Dioxide 24 (21-32) mmol/L Anion Gap 11.2 (5.0-14.0) mmol/L BUN 4 L (7-18) mg/dL Creatinine 0.8 (0.6-1.0) mg/dL Est Cr Clr Drug Dosing 40.25 mL/min Estimated GFR (MDRD) > 60 (>60) Glucose 85 (74-106) mg/dL Calcium 8.3 L (8.5-10.1) mg/dL Med Orders - Current: Current Medications Acetaminophen (Tylenol) 650 mg PO Q4H PRN PRN Reason: Pain (Mild 1-3)/fever Last Admin: 04/10/17 22:54 Dose: 650 mg Amlodipine Besylate (Norvasc) 2.5 mg PO BID [facility] Last Admin: 04/14/17 08:07 Dose: 2.5 mg Aspirin (Halfprin) 81 mg PO DAILY [facility] Last Admin: 04/14/17 08:07 Dose: 81 mg Cefdinir (Omnicef) 300 mg PO BID [facility] Last Admin: 04/14/17 08:07 Dose: 300 mg Lisinopril (Prinivil) 10 mg PO DAILY [facility] Last Admin: 04/14/17 10:46 Dose: 10 mg Lorazepam (Ativan) 0.5 mg IVPUSH Q4H PRN PRN Reason: Nausea/Vomiting Metoprolol Tartrate (Lopressor) 25 mg PO BID [facility] Last Admin: 04/14/17 08:07 Dose: 25 mg Nicotine (Habitrol) 14 mg TRDERM DAILY [facility] Last Admin: 04/14/17 08:08 Dose: 14 mg Ondansetron HCl (Zofran Odt) 4 mg PO Q6H PRN PRN Reason: Nausea able to take PO Ondansetron HCl (Zofran) 4 mg IV Q6H PRN PRN Reason: Nausea/Vomiting Polyethylene Glycol (Miralax) 17 gm PO DAILY PRN PRN Reason: Constipation Simvastatin (Zocor) 40 mg PO BEDTIME [facility] Last Admin: 04/13/17 20:47 Dose: 40 mg Discontinued Medications Enoxaparin Sodium (Lovenox) 30 mg SUBCUT DAILY [facility] Last Admin: 04/11/17 09:19 Dose: Not Given Enoxaparin Sodium (Lovenox) 30 mg SUBCUT ONETIME ONE Stop: 04/10/17 20:31 Last Admin: 04/10/17 20:52 Dose: 30 mg Sodium Chloride (Normal Saline) 1,000 mls @ 500 mls/hr IV .BOLUS [facility] Last Admin: 04/10/17 18:19 Dose: 500 mls/hr Sodium Chloride (Normal Saline) 1,000 mls @ 125 mls/hr IV ASDIRECTED [facility] Last Admin: 04/12/17 05:01 Dose: 125 mls/hr Ceftriaxone Sodium 1 gm/ (Sodium Chloride) 50 mls @ 100 mls/hr IV Q24H [facility] Last Admin: 04/12/17 19:43 Dose: 100 mls/hr Sodium Chloride (Normal Saline) 500 mls @ 500 mls/hr IV .BOLUS ONE Stop: 04/10/17 21:56 Last Admin: 04/11/17 03:39 Dose: 500 mls/hr Sodium Chloride (Normal Saline) 500 mls @ 500 mls/hr IV ASDIRECTED [facility] Stop: 04/11/17 03:46 Sodium Chloride (Normal Saline) 1,000 mls @ 100 mls/hr IV ASDIRECTED [facility] Last Admin: 04/13/17 02:16 Dose: 100 mls/hr Metoprolol Tartrate (Lopressor) 12.5 mg PO BID [facility] Last Admin: 04/13/17 08:34 Dose: 12.5 mg Non-Formulary Medication (Lisinopril/Hydrochlorothiazide [Lisinopril-Hctz 10- 12.5 Mg Tab]) 1 tab PO BID [facility] Phenazopyridine HCl (Urinary Pain Relief) 95 mg PO ONETIME ONE Stop: 04/10/17 17:36 Last Admin: 04/10/17 18:11 Dose: 95 mg Potassium Chloride (Klor-Con M20) 40 meq PO ONETIME ONE Stop: 04/12/17 09:31 Last Admin: 04/12/17 10:22 Dose: 40 meq Potassium Chloride (Klor-Con M20) 40 meq PO ONETIME ONE Stop: 04/13/17 08:31 Last Admin: 04/13/17 08:35 Dose: 40 meq - Exam Quality Assessment: Urine Catheter, DVT Prophylaxis General: Alert, Oriented, Cooperative, No Acute Distress Lungs: Clear to Auscultation, Normal Respiratory Effort Cardiovascular: Regular Rate, Regular Rhythm, No Murmurs GI/Abdominal Exam: Normal Bowel Sounds, Soft, Non-Tender, No Distention Extremities: Normal Inspection, No Pedal Edema Skin: Warm, Dry, Intact - Problem List Review Problem List Initiated/Reviewed/Updated: Yes - My Orders Last 24 Hours: My Active Orders 04/13/17 21:00 Metoprolol Tartrate [Lopressor] 25 mg PO BID Simvastatin [Zocor] 40 mg PO BEDTIME 04/14/17 10:15 Lisinopril [Prinivil] 10 mg PO DAILY 04/15/17 05:00 BASIC METABOLIC PANEL,BMP [CHEM] Timed CBC WITH AUTO DIFF [HEME] Timed - Plan Plan:: Assessment and plan - Severe hyponatremia - likely hypovolemic with possible contribution from medications. Sodium level decreased since yesterday after IV fluids were discontinued -Saline lock IV -Repeat labs in the morning -Discontinue hydrochlorothiazide -Continue ceftriaxone as below -Physical therapy for weakness Acute cystitis with oscar hematuria - urine culture is negative thus far. CT of the abdomen and pelvis this morning showed a 4 x 5 cm mass or hemorrhage in the right side of the bladder as well as moderate hydronephrosis and hydroureter. Kidney function is normal at this time. There is no evidence for sepsis. I did discuss the abnormal CT with urology at [facility] and outpatient follow- up once she has stabilized was recommended. Dr. Sullivan thought she would likely need a trip to the operating room for exploration and management of the mass versus hemorrhage. -Follow-up Urine culture -Omnicef 300 mg by mouth twice a day -Continue Sim catheter until urine clears up -Early urology follow-up after hospital discharge unless things worsen Stage III chronic kidney disease - creatinine levels stable with hydration Maintenance issues - - DVT prophylaxis - mechanical with active hemorrhage into the bladder - GI prophylaxis - not indicated - Nutrition - full liquids - Sim catheter - placed in the emergency room for strict intake and output monitoring as well as management of oscar hematuria Disposition - anticipate discharge home tomorrow Primary care physician - Ebenezer Armas NP
[2017-04-14] MEDS: Simvastatin 20 MG Tab PO SCH (21:32)
[2017-04-15] MEDS: Nicotine 14 MG/24 Hr Patch TRDERM SCH (10:25)
[2017-04-15] MEDS: Cefdinir 300 MG Cap PO SCH (10:25)
[2017-04-15] MEDS: Metoprolol Tartrate 25 MG Tab PO SCH (10:25)
[2017-04-15] MEDS: Aspirin 81 MG Tab.EC PO SCH (10:26)
[2017-04-15] MEDS: amLODIPine 2.5 MG Tab PO SCH (10:26)
[2017-04-15] MEDS: Lisinopril 10 MG Tab PO SCH (10:27)
[2017-04-15 11:39] VITALS: BP 146/68
--- NOTE | 2017-04-15 15:44 | PCM.DCSUM1 ---
Discharge Summary - Hospital Course Brief History: This patient is an 82-year-old woman who is admitted through the emergency department with a history of nausea, weakness, and fatigue. On evaluation was noted to have severe hyponatremia, with a sodium level of 106. - Discharge Data Discharge Date: 04/15/17 Discharge Disposition: Home, [facility] 06 Condition: Fair - Discharge Diagnosis/Problem(s) (1) Gross hematuria SNOMED Code(s): 776804480 ICD Code: R31.0 - GROSS HEMATURIA Status: Acute Current Visit: Yes (2) UTI, Urinary tract infectious disease SNOMED Code(s): 85417179 ICD Code: N39.0 - URINARY TRACT INFECTION, SITE NOT SPECIFIED Status: Acute Current Visit: Yes (3) Hyponatremia SNOMED Code(s): 96650433 ICD Code: E87.1 - HYPO-OSMOLALITY AND HYPONATREMIA Status: Acute Current Visit: Yes - Patient Summary/Data Consults: Consultations 04/11/17 07:00 PT Evaluation and Treatment [CONS] Routine Please Evaluate and Treat. PT Reason for Consult: Strengthening This query below is only for informational purposes and is not editable. Hospital Course: Ms. Garcia is an 82-year-old woman who was evaluated in the emergency department because of weakness and nausea. Appetite is been very poor for a period of 2 weeks prior to admission. On evaluation in the emergency department was found to have severe hyponatremia with a sodium level of 106. She was also found to have evidence of a urinary tract infection. She was admitted to the hospital and given IV normal saline as well as IV antibiotic therapy with Rocephin. With IV fluids her sodium level slowly increased to 128 and she felt significantly improved with resolution of weakness and nausea. After IV fluids were discontinued sodium level dropped to 124, she continued to feel well at this level. Low-sodium was felt to be medication effect as well as fluid imbalance, hydrochlorothiazide was discontinued and will remain discontinued on discharge. During hospital stay developed significant gross hematuria. CT scan of the abdomen and pelvis showed evidence of a bladder mass versus clot. These findings were discussed with the urologist and they recommended outpatient appointment with urology which is been scheduled for April 17. She will be discharged on additional 3 days of oral antibiotic therapy with Omnicef 300 mg twice daily. Follow-up appointment will be scheduled with her primary care provider within one week, labs should be obtained at that time including BMP and CBC. Activity will be as tolerated and she will resume her usual diet. - Patient Instructions Diet: Usual Diet as Tolerated Activity: As Tolerated Other/Special Instructions: Please schedule follow-up appointment with Ebenezer Hartley within one week. Labs should be obtained at the time of follow-up appointment including BMP and CBC. Sim catheter to be left in until seen by urology on April 17. - Discharge Plan Prescriptions/Med Rec: Cefdinir [IJD: Cefdinir] 300 mg PO BID #6 capsule Lisinopril [Prinivil] 10 mg PO DAILY #30 tablet Home Medications: Home Meds Metoprolol Tartrate [Lopressor] 25 mg PO BID 04/10/17 [History] Simvastatin [Zocor] 40 mg PO BEDTIME 04/10/17 [History] amLODIPine [Norvasc] 2.5 mg PO BID 04/10/17 [History] Cefdinir [IJD: Cefdinir] 300 mg PO BID #6 capsule 04/15/17 [Rx] Lisinopril [Prinivil] 10 mg PO DAILY #30 tablet 04/15/17 [Rx] Referrals: Ebenezer Armas, PARLIAMENTARY LIBRARIAN [Primary Care Provider] - - Patient Data Vitals - Most Recent: Last Vital Signs Temp 97.3 F 04/15/17 11:38 Pulse 72 04/15/17 11:38 Resp 16 04/15/17 11:38 BP 146/68 H 04/15/17 11:38 Pulse Ox 98 04/15/17 11:38 Weight - Most Recent: 122 lb 9.585 oz I&O - Last 24 hours: Intake & Output 04/15/17 04/15/17 04/15/17 06:59 14:59 22:59 Intake Total 720 1280 Output Total 950 1800 Balance -230 -520 Lab Results - Last 24 hrs: Laboratory Results - last 24 hr 04/11/17 04/15/17 04/15/17 Range/Units 09:08 04:45 04:47 WBC 6.9 (4.5-11.0) K/uL RBC 3.03 L (3.30-5.50) M/uL Hgb 9.0 L (12.0-15.0) g/dL Hct 26.4 L (36.0-48.0) % MCV 87 (80-98) fL MCH 30 (27-31) pg MCHC 34 (32-36) % Plt Count 292 (150-400) K/uL Neut % (Auto) 60 (36-66) % Lymph % (Auto) 27 (24-44) % [place] % (Auto) 10 H (2-6) % Eos % (Auto) 3 (2-4) % Baso % (Auto) 0 (0-1) % Sodium (140-148) mmol/L Potassium (3.6-5.2) mmol/L Chloride (100-108) mmol/L Carbon Dioxide (21-32) mmol/L Anion Gap (5.0-14.0) mmol/L BUN (7-18) mg/dL Creatinine (0.6-1.0) mg/dL Est Cr Clr Drug Dosing mL/min Estimated GFR (MDRD) (>60) Glucose (74-106) mg/dL Calcium (8.5-10.1) mg/dL TSH, Ultra Sensitive 1.505 (0.358-3.740) uIU/mL Blood Type B POSITIVE Gel Antibody Screen Negative Crossmatch See Detail 04/15/17 Range/Units 04:47 WBC (4.5-11.0) K/uL RBC (3.30-5.50) M/uL Hgb (12.0-15.0) g/dL Hct (36.0-48.0) % MCV (80-98) fL MCH (27-31) pg MCHC (32-36) % Plt Count (150-400) K/uL Neut % (Auto) (36-66) % Lymph % (Auto) (24-44) % [place] % (Auto) (2-6) % Eos % (Auto) (2-4) % Baso % (Auto) (0-1) % Sodium 124 L (140-148) mmol/L Potassium 4.2 (3.6-5.2) mmol/L Chloride 94 L (100-108) mmol/L Carbon Dioxide 27 (21-32) mmol/L Anion Gap 7.2 (5.0-14.0) mmol/L BUN 5 L (7-18) mg/dL Creatinine 0.8 (0.6-1.0) mg/dL Est Cr Clr Drug Dosing 40.25 mL/min Estimated GFR (MDRD) > 60 (>60) Glucose 86 (74-106) mg/dL Calcium 8.2 L (8.5-10.1) mg/dL TSH, Ultra Sensitive (0.358-3.740) uIU/mL Blood Type Gel Antibody Screen Crossmatch Med Orders - Current: Current Medications Acetaminophen (Tylenol) 650 mg PO Q4H PRN PRN Reason: Pain (Mild 1-3)/fever Last Admin: 04/10/17 22:54 Dose: 650 mg Amlodipine Besylate (Norvasc) 2.5 mg PO BID [facility] Last Admin: 04/15/17 10:26 Dose: 2.5 mg Aspirin (Halfprin) 81 mg PO DAILY [facility] Last Admin: 04/15/17 10:26 Dose: 81 mg Cefdinir (Omnicef) 300 mg PO BID [facility] Last Admin: 04/15/17 10:25 Dose: 300 mg Lisinopril (Prinivil) 10 mg PO DAILY [facility] Last Admin: 04/15/17 10:27 Dose: 10 mg Lorazepam (Ativan) 0.5 mg IVPUSH Q4H PRN PRN Reason: Nausea/Vomiting Metoprolol Tartrate (Lopressor) 25 mg PO BID [facility] Last Admin: 04/15/17 10:25 Dose: 25 mg Nicotine (Habitrol) 14 mg TRDERM DAILY [facility] Last Admin: 04/15/17 10:25 Dose: 14 mg Ondansetron HCl (Zofran Odt) 4 mg PO Q6H PRN PRN Reason: Nausea able to take PO Ondansetron HCl (Zofran) 4 mg IV Q6H PRN PRN Reason: Nausea/Vomiting Polyethylene Glycol (Miralax) 17 gm PO DAILY PRN PRN Reason: Constipation Simvastatin (Zocor) 40 mg PO BEDTIME [facility] Last Admin: 04/14/17 21:32 Dose: 40 mg Discontinued Medications Enoxaparin Sodium (Lovenox) 30 mg SUBCUT DAILY [facility] Last Admin: 04/11/17 09:19 Dose: Not Given Enoxaparin Sodium (Lovenox) 30 mg SUBCUT ONETIME ONE Stop: 04/10/17 20:31 Last Admin: 04/10/17 20:52 Dose: 30 mg Sodium Chloride (Normal Saline) 1,000 mls @ 500 mls/hr IV .BOLUS [facility] Last Admin: 04/10/17 18:19 Dose: 500 mls/hr Sodium Chloride (Normal Saline) 1,000 mls @ 125 mls/hr IV ASDIRECTED [facility] Last Admin: 04/12/17 05:01 Dose: 125 mls/hr Ceftriaxone Sodium 1 gm/ (Sodium Chloride) 50 mls @ 100 mls/hr IV Q24H [facility] Last Admin: 04/12/17 19:43 Dose: 100 mls/hr Sodium Chloride (Normal Saline) 500 mls @ 500 mls/hr IV .BOLUS ONE Stop: 04/10/17 21:56 Last Admin: 04/11/17 03:39 Dose: 500 mls/hr Sodium Chloride (Normal Saline) 500 mls @ 500 mls/hr IV ASDIRECTED [facility] Stop: 04/11/17 03:46 Sodium Chloride (Normal Saline) 1,000 mls @ 100 mls/hr IV ASDIRECTED [facility] Last Admin: 04/13/17 02:16 Dose: 100 mls/hr Metoprolol Tartrate (Lopressor) 12.5 mg PO BID [facility] Last Admin: 04/13/17 08:34 Dose: 12.5 mg Non-Formulary Medication (Lisinopril/Hydrochlorothiazide [Lisinopril-Hctz 10- 12.5 Mg Tab]) 1 tab PO BID [facility] Phenazopyridine HCl (Urinary Pain Relief) 95 mg PO ONETIME ONE Stop: 04/10/17 17:36 Last Admin: 04/10/17 18:11 Dose: 95 mg Potassium Chloride (Klor-Con M20) 40 meq PO ONETIME ONE Stop: 04/12/17 09:31 Last Admin: 04/12/17 10:22 Dose: 40 meq Potassium Chloride (Klor-Con M20) 40 meq PO ONETIME ONE Stop: 04/13/17 08:31 Last Admin: 04/13/17 08:35 Dose: 40 meq *Q Meaningful Use (DIS) - VTE *Q VTE Criteria *Q: - Stroke *Q Stroke Criteria *Q: - AMI *Q AMI Criteria *Q:
== END 2017-04-15 16:50 | disposition home health service (06) | DRG 690 ==
LOC: JP.ED 17:03 → JP.ICU 18:56 → JP.MS 04-13 14:42
PROVIDERS: ADMIT Internal Medicine; ATTEND Hospitalist
DX: N39.0 Urinary tract infection, site not specified (principal); E87.1 Hypo-osmolality and hyponatremia; R31.9 Hematuria, unspecified; R31.0 Gross hematuria; E86.0 Dehydration; T50.2X5A Adverse effect of carbonic-anhydrase inhibitors, benzothiadiazides and other diuretics, initial encounter; Y92.009 Unspecified place in unspecified non-institutional (private) residence as the place of occurrence of the external cause; R53.1 Weakness; R11.2 Nausea with vomiting, unspecified; R63.0 Anorexia; I12.9 Hypertensive chronic kidney disease with stage 1 through stage 4 chronic kidney disease, or unspecified chronic kidney disease; F17.210 Nicotine dependence, cigarettes, uncomplicated; N18.3 Chronic kidney disease, stage 3 (moderate); I25.10 Atherosclerotic heart disease of native coronary artery without angina pectoris; E78.00 Pure hypercholesterolemia, unspecified; H54.7 Unspecified visual loss; H91.90 Unspecified hearing loss, unspecified ear; Z79.82 Long term (current) use of aspirin; Z88.1 Allergy status to other antibiotic agents; Z88.8 Allergy status to other drugs, medicaments and biological substances; N32.9 Bladder disorder, unspecified; N32.89 Other specified disorders of bladder; Z90.5 Acquired absence of kidney
CPT/HCPCS: 36415; 51798; 80048; 83605; 85025; 96361; 99284; 99285; A9270; J7040; 36430; 51700; 71010; 71010-26; 71250; 74176; 81001; 84443; 85018; 85027; 86850; 86900; 86901; 86920; 86922; 87086; 96360; 96374; 96375; 97161-GP; 97530-GP; J0696; J1650; J7050; P9016

== ENCOUNTER 2017-04-17 21:08 | Emergency (ER) | payer MEDICARE, BC ==
[2017-04-17 21:31] VITALS: BP 102/64
--- NOTE | 2017-04-17 22:26 | EDM.PDOC ---
ED HPI GENERAL MEDICAL PROBLEM - General Chief Complaint: Genitourinary Problem Stated Complaint: CATHETER PROBLEM Time Seen by Provider: 04/17/17 22:08 Source of Information: Reports: Patient History Limitations: Reports: No Limitations - History of Present Illness INITIAL COMMENTS - FREE TEXT/NARRATIVE: History of present illness: [Patient presents with a urethral catheter in place and a history of a bladder mass that will be dealt with surgically the first part of April. She just saw a urologist today in [place] and now she's leaking around the catheter doesn' t seem to be functioning.] Review of systems: As per history of present illness and below otherwise all systems reviewed and negative. Past medical history: As per history of present illness and as reviewed below otherwise noncontributory. Surgical history: As per history of present illness and as reviewed below otherwise noncontributory. Social history: No reported history of drug or alcohol abuse. Family history: As per history of present illness and as reviewed below otherwise noncontributory. Physical exam: HEENT: Atraumatic, normocephalic, pupils reactive, negative for conjunctival pallor or scleral icterus, mucous membranes moist, throat clear, neck supple, nontender, trachea midline. Lungs: Clear to auscultation, breath sounds equal bilaterally, chest nontender. Heart: S1S2, regular, negative for clicks, rubs, or JVD. Abdomen: Soft, nondistended, nontender. Negative for masses or hepatosplenomegaly. Negative for costovertebral tenderness. Pelvis: Stable nontender. Genitourinary: Deferred. Rectal: Deferred. Extremities: Atraumatic, negative for cords or calf pain. Neurovascular unremarkable. Neuro: Awake, alert, oriented. Cranial nerves II through XII unremarkable. Cerebellum unremarkable. Motor and sensory unremarkable throughout. Exam nonfocal. Diagnostics: [] Therapeutics: [Catheter was switched out and the catheter is functioning well] Impression: [Catheter change] Plan: [She will follow-up when necessary] Definitive disposition and diagnosis as appropriate pending reevaluation and review of above. 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: Urinary Catheter in Place - Related Data Allergies Allergy/AdvReac Type Severity Reaction Status Date / Time tetracycline Allergy Dizziness Verified 04/17/17 21:32 valacyclovir [From Valtrex] Allergy Nausea Verified 04/17/17 21:32 Home Meds: Home Meds Metoprolol Tartrate [Lopressor] 25 mg PO BID 04/10/17 [History] Simvastatin [Zocor] 40 mg PO BEDTIME 04/10/17 [History] amLODIPine [Norvasc] 2.5 mg PO BID 04/10/17 [History] Cefdinir [IJD: Cefdinir] 300 mg PO BID #6 capsule 04/15/17 [Rx] Lisinopril [Prinivil] 10 mg PO DAILY #30 tablet 04/15/17 [Rx] Past Medical History HEENT History: Reports: Hard of Hearing, Impaired Vision Cardiovascular History: Reports: CAD, High Cholesterol, Hypertension Respiratory History: Reports: None Gastrointestinal History: Reports: None 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: Psychiatric History: Reports: Anxiety Hematologic History: Reports: Blood Transfusion(s) Oncologic (Cancer) History: Reports: Other (See Below) Other Oncologic History: 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 - Infectious Disease History Infectious Disease History: Reports: Chicken Pox, Measles, Shingles - Past Surgical History HEENT Surgical History: Reports: None Cardiovascular Surgical History: Reports: Carotid Endarterectomy Female Surgical History: Reports: Nephrectomy Other Female Surgeries/Procedures: l nephrectomy 2006 Social & Family History - Family History Family Medical History: Noncontributory - Tobacco Use Smoking Status *Q: Current Every Day Smoker Years of Tobacco use: 63 Packs/Tins Daily: 1 Used Tobacco, but Quit: No Second Hand Smoke Exposure: No - Caffeine Use Caffeine Use: Reports: Coffee - Recreational Drug Use Recreational Drug Use: No ED ROS GENERAL - Review of Systems Review Of Systems: ROS reveals no pertinent complaints other than HPI. ED EXAM, GENERAL - Physical Exam Exam: See Below Course - Vital Signs Last Recorded V/S: Last Vital Signs Temp 35.7 C 04/17/17 21:38 Pulse 101 H 04/17/17 21:38 Resp 16 04/17/17 21:38 BP 102/64 04/17/17 21:38 Pulse Ox 96 04/17/17 21:38 Departure - Departure Time of Disposition: 22:26 Disposition: Home, Self-Care 01 Condition: Good Clinical Impression: Catheter (urine) change required - Discharge Information Referrals: Ebenezer Armas, HAT BAND ATTACHER [Primary Care Provider] -
== END 2017-04-17 22:39 | disposition home or self-care (01) ==
LOC: JP.ED 21:08
DX: Z46.6 Encounter for fitting and adjustment of urinary device (principal); I10 Essential (primary) hypertension; I25.10 Atherosclerotic heart disease of native coronary artery without angina pectoris; E78.00 Pure hypercholesterolemia, unspecified; F41.9 Anxiety disorder, unspecified; F17.210 Nicotine dependence, cigarettes, uncomplicated; Z79.899 Other long term (current) drug therapy; Z88.1 Allergy status to other antibiotic agents; Z88.8 Allergy status to other drugs, medicaments and biological substances; Z90.5 Acquired absence of kidney; Z98.890 Other specified postprocedural states
CPT/HCPCS: 51702; 99283

== ENCOUNTER 2017-05-06 13:30 | Emergency (ER) | payer MEDICARE, BC ==
[2017-05-06] MEDS ORDERED: Magnesium Citrate Solution 296 ML Bottle PO ONE (14:44)
--- NOTE | 2017-05-06 14:45 | EDM.PDOC ---
<Krishna Vieira - Last Filed: 05/06/17 19:34> ED HPI GENERAL MEDICAL PROBLEM - General Chief Complaint: Gastrointestinal Problem Stated Complaint: CAME FROM CLINIC Time Seen by Provider: 05/06/17 14:45 - Related Data Allergies Allergy/AdvReac Type Severity Reaction Status Date / Time tetracycline Allergy Dizziness Verified 04/17/17 21:32 valacyclovir [From Valtrex] Allergy Nausea Verified 04/17/17 21:32 Home Meds: Home Meds Metoprolol Tartrate [Lopressor] 25 mg PO BID 04/10/17 [History] Simvastatin [Zocor] 40 mg PO BEDTIME 04/10/17 [History] amLODIPine [Norvasc] 2.5 mg PO BID 04/10/17 [History] Lisinopril [Prinivil] 10 mg PO DAILY #30 tablet 04/15/17 [Rx] ED ROS GENERAL - Review of Systems Review Of Systems: ROS reveals no pertinent complaints other than HPI. ED EXAM, GI/ABD - Physical Exam Exam: See Below Course - Vital Signs Text/Narrative:: The patient was able to expel a large bolus of hard stool and she is not able to tolerate any further intervention at this time but I think the main problem that she had has been taking care of and hopefully now she'll be able to stool without difficulty. Last Recorded V/S: Last Vital Signs Temp 36.2 C 05/06/17 14:26 Pulse 86 05/06/17 14:26 Resp 18 05/06/17 14:26 BP 146/68 H 05/06/17 18:03 Pulse Ox 98 05/06/17 14:26 - Orders/Labs/Meds Orders: Active Orders 24 hr Category Date Time Status Enema [RC] ASDIRECTED Care 05/06/17 17:37 Active Meds: Medications Discontinued Medications Generic Name Dose Route Start Last Admin Trade Name Freq PRN Reason Stop Dose Admin Magnesium Citrate 296 ml 05/06/17 14:44 05/06/17 15:39 Citrate Of Magnesia PO 05/06/17 14:45 296 ml ONETIME ONE Administration Departure - Departure Time of Disposition: 19:36 Disposition: Home, Self-Care 01 Condition: Fair Clinical Impression: Constipation Qualifiers: Constipation type: unspecified constipation type Qualified Code(s): K59.00 - Constipation, unspecified - Discharge Information Instructions: Constipation, Adult Referrals: Ebenezer Armas SALES OFFICE COORDINATOR [Primary Care Provider] - Forms: ED Department Discharge - My Orders Last 24 Hours: My Active Orders 05/06/17 17:37 Enema [RC] ASDIRECTED - Assessment/Plan Last 24 Hours: My Active Orders 05/06/17 17:37 Enema [RC] ASDIRECTED <Sepideh Pierre - Last Filed: 05/07/17 07:33> ED HPI GENERAL MEDICAL PROBLEM - General Source of Information: Reports: Patient History Limitations: Reports: No Limitations - History of Present Illness INITIAL COMMENTS - FREE TEXT/NARRATIVE: pt had a bladder tumor removed and she was on pain pills. She became very constipated and did not have a bm for 1 week. 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, removed in - Infectious Disease History Infectious Disease History: Reports: Chicken Pox, Measles, Mumps - Past Surgical History HEENT Surgical History: Reports: None Cardiovascular Surgical History: Reports: Carotid Endarterectomy Female Surgical History: Reports: Nephrectomy Other Female Surgeries/Procedures: l nephrectomy 2006, bladder tumor removed in Social & Family History - Family History Family Medical History: Noncontributory - Tobacco Use Smoking Status *Q: Current Every Day Smoker Years of Tobacco use: 61 Packs/Tins Daily: 1 Used Tobacco, but Quit: No Second Hand Smoke Exposure: No - Caffeine Use Caffeine Use: Reports: Coffee, Tea - Recreational Drug Use Recreational Drug Use: No ED ROS GENERAL - Review of Systems Review Of Systems: See Below Constitutional: Reports: No Symptoms HEENT: Reports: No Symptoms Respiratory: Reports: No Symptoms Cardiovascular: Reports: No Symptoms Endocrine: Reports: No Symptoms GI/Abdominal: Reports: Abdominal Pain, Other (pt feels like she has stool in the rectum and this was stuck and ready to pass. ) : Reports: Other (pt had a recent bladder tumor removed and she has a catheter ) ED EXAM, GI/ABD - Physical Exam Exam: See Below Exam Limited By: No Limitations General Appearance: Alert, Moderate Distress Ears: Normal External Exam Nose: Normal Inspection Throat/Mouth: Normal Inspection Head: Atraumatic Neck: Normal Inspection Respiratory/Chest: No Respiratory Distress Cardiovascular: Regular Rate, Rhythm GI/Abdominal Exam: Tender, Other (pt has generalized tenderness without guarding. ) Rectal (Female) Exam: Fecal Impaction Back Exam: Normal Inspection Course - Re-Assessments/Exams Free Text/Narrative Re-Assessment/Exam: 05/07/17 07:31 pt was given 2 tap watwr enema with no results. She was then given a oil retention emema and a soap suds and a hard bolus of stool was passed.
[2017-05-06 18:03] VITALS: BP 146/68
== END 2017-05-06 20:11 | disposition home or self-care (01) ==
LOC: JP.ED 13:30
DX: K59.00 Constipation, unspecified (principal); H54.7 Unspecified visual loss; I25.10 Atherosclerotic heart disease of native coronary artery without angina pectoris; E78.00 Pure hypercholesterolemia, unspecified; I10 Essential (primary) hypertension; F17.210 Nicotine dependence, cigarettes, uncomplicated; Z79.899 Other long term (current) drug therapy; Z98.890 Other specified postprocedural states; Z88.8 Allergy status to other drugs, medicaments and biological substances
CPT/HCPCS: 99283; A9270

== ENCOUNTER 2017-08-25 14:19 | Inpatient (IN) | payer MEDICARE, BC ==
--- NOTE | 2017-08-25 15:21 | PCM.HP ---
H&P History of Present Illness - General Date of Service: 08/25/17 Admit Problem/Dx: Admission Diagnosis/Problem Admission Diagnosis/Problem Bilateral pneumonia Source of Information: Patient, Provider History Limitations: Reports: No Limitations - History of Present Illness Initial Comments - Free Text/Narative: Anastasiya presented to the walk-in clinic today with one week of cough and shortness of breath as well as fatigue and loss of appetite. Workup in the walk- in clinic revealed bilateral pneumonia as well as hypoxia and she was sent for direct admission. Patient reports progressive shortness of breath as well as increasing cough and sputum production with yellow sputum. She has not had any fevers that she is aware of. Her appetite has been decreasing, especially over the past couple of days. She short of breath with any activity but comfortable at rest. No reports of chest pain or abdominal pain. No diarrhea. She has not had any sick contacts that she is aware of. No recent antibiotics or steroids. - Related Data Allergies/Adverse Reactions: Allergies Allergy/AdvReac Type Severity Reaction Status Date / Time tetracycline AdvReac Dizziness Verified 07/20/17 08:02 valacyclovir [From Valtrex] AdvReac Nausea Verified 07/20/17 08:02 Home Medications: Home Meds Metoprolol Tartrate [Lopressor] 50 mg PO BID 04/10/17 [History] Simvastatin [Zocor] 40 mg PO BEDTIME 04/10/17 [History] amLODIPine [Norvasc] 2.5 mg PO BID 04/10/17 [History] Lisinopril [Prinivil] 10 mg PO DAILY #30 tablet 04/15/17 [Rx] Past Medical History HEENT History: Reports: Hard of Hearing, Impaired Vision Cardiovascular History: Reports: CAD, High Cholesterol, Hypertension Respiratory History: Reports: None Gastrointestinal History: Reports: None 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: Psychiatric History: Reports: Anxiety Hematologic History: Reports: Blood Transfusion(s) Oncologic (Cancer) History: Reports: Other (See Below) Other Oncologic History: 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, removed in - Infectious Disease History Infectious Disease History: Reports: Chicken Pox, Measles, Mumps - Past Surgical History HEENT Surgical History: Reports: None Cardiovascular Surgical History: Reports: Carotid Endarterectomy Female Surgical History: Reports: Nephrectomy Other Female Surgeries/Procedures: l nephrectomy 2006, bladder tumor removed in Social & Family History - Family History Family Medical History: Noncontributory - Tobacco Use Smoking Status *Q: Current Every Day Smoker Years of Tobacco use: 62 Packs/Tins Daily: 0.5 Used Tobacco, but Quit: No Second Hand Smoke Exposure: No - Caffeine Use Caffeine Use: Reports: Coffee - Alcohol Use Alcohol Use History: No - Recreational Drug Use Recreational Drug Use: No H&P Review of Systems - Review of Systems: Review Of Systems: See Below Free Text/Narrative: A complete 12 point review of systems was obtained. Pertinent positives and negatives are noted in the history of present illness. All other systems were reviewed and were negative except as noted. Exam - Exam Exam: See Below - Vital Signs Vital Signs: Last Vital Signs Temp 37.2 C 08/25/17 14:43 Pulse 105 H 08/25/17 14:43 Resp 16 08/25/17 14:43 BP 109/69 08/25/17 14:43 Pulse Ox 91 L 08/25/17 14:43 Weight: 53.2 kg - Exam Quality Assessment: Supplemental Oxygen General: Alert, Oriented, Cooperative. No: Mild Distress HEENT: Conjunctiva Clear. No: Mucosa Moist & [place] (dry), Scleral Icterus Neck: Supple, Trachea Midline. No: Lymphadenopathy Lungs: Normal Respiratory Effort, Crackles (both bases L>R). No: Wheezing Cardiovascular: Regular Rhythm, Tachycardia GI/Abdominal Exam: Normal Bowel Sounds, Soft, Non-Tender, No Distention, No Mass Back Exam: Normal Inspection, Other (kyphosis) Extremities: No Pedal Edema. No: Increased Warmth Peripheral Pulses: 2+: Dorsalis Pedis (L), Dorsalis Pedis (R) Skin: Warm, Dry Neuro Extensive - Mental Status: Alert, Oriented x3, Nl Response to Commands Neuro Extensive - Motor, Sensory, Reflexes: CN II-XII Intact. No: Dysarthria, Abnormal Motor, Tremor Psychiatric: Alert, Normal Affect - Patient Data Lab Results Last 24 hrs: white blood cell count is 14,000 Imaging Impressions Last 24 hrs: CXR - images from [facility] personally reviewed - bilateral lower lung infiltrates and probable RML infiltrate. No mass or effusion *Q Meaningful Use (ADM) - VTE *Q VTE Criteria *Q: - VTE Risk Assess *Q Each Risk Factor Represents 1 Point: Abnormal Pulmonary Function (COPD) Total Score 1 Point Risk Factors: 1 Each Risk Factor Represents 2 Points: Malignancy (present or previous) Total Score 2 Point Risk Factors: 2 Each Risk Factor Represents 3 Points: Age 75 Years or Greater Total Score 3 Point Risk Factors: 3 Each Risk Factor Represents 5 Points: None Total Score 5 Point Risk Factors: 0 Venous Thromboembolism Risk Factor Score *Q: 6 - Stroke *Q Stroke Criteria *Q: - AMI *Q AMI Criteria *Q: - Problem List (1) Pneumonia of both lower lobes SNOMED Code(s): 762645701 ICD Code: J18.9 - PNEUMONIA, UNSPECIFIED ORGANISM Status: Acute Current Visit: Yes Qualifiers: Pneumonia type: due to unspecified organism Qualified Code(s): J18.9 - Pneumonia, unspecified organism (2) Acute respiratory failure with hypoxia SNOMED Code(s): 95240993 ICD Code: J96.01 - ACUTE RESPIRATORY FAILURE WITH HYPOXIA Status: Acute Current Visit: Yes (3) Bladder cancer SNOMED Code(s): 440449447 ICD Code: C67.9 - MALIGNANT NEOPLASM OF BLADDER, UNSPECIFIED Status: Acute Current Visit: Yes Qualifiers: Bladder location: unspecified site Qualified Code(s): C67.9 - Malignant neoplasm of bladder, unspecified (4) Tobacco dependence SNOMED Code(s): 26804836 ICD Code: F17.200 - NICOTINE DEPENDENCE, UNSPECIFIED, UNCOMPLICATED Status : Chronic Current Visit: Yes Problem List Initiated/Reviewed/Updated: Yes Orders Last 24hrs: Active Orders 24 hr Category Date Time Status Patient Status Manage Transfer [TRANSFER] Routine ADT 08/25/17 15:06 Ordered Resuscitation Status Routine Resus Stat 08/25/17 15:09 Ordered Assessment/Plan Comment:: ASSESSMENT AND PLAN - Bilateral pneumonia with hypoxic respiratory failure - history of emphysema with long-standing smoking history. She is hypoxic and requiring supplemental oxygen and not safe for outpatient management. No fevers at this time. No recent antibiotics. -Levofloxacin -IV fluid bolus followed by continuous infusion overnight -Sputum culture if able -Supplement oxygen -Scheduled and as needed nebulizers -40 mg of prednisone now and 20 mg twice daily starting tomorrow -telemetry Bladder cancer - recent diagnosis and has had one surgery and a second surgery as planned. No active hematuria at this time. -Outpatient follow-up Essential hypertension - blood pressure currently normal but will need to be monitored closely with active infection. Usual medications will be continued unless blood pressure trends down Tobacco dependence - no interest in quitting at this time. Nicotine patch offered. Maintenance issues - - DVT prophylaxis - enoxaparin - GI prophylaxis - not indicated - Nutrition - regular diet - Sim catheter - not indicated CODE STATUS - full code Admission justification - This patient will be admitted for inpatient services and is medically appropriate meeting medical necessity for inpatient admission as outlined in my documentation. I reasonably expect the patient will require inpatient services that span a period time over 2 midnights. I reasonably expect this patient to be discharged or transferred within 96 hours [facility]. Disposition - anticipate discharge home after the hospital stay Primary care physician - Ebenezer Galindo M.D.
[2017-08-25] MEDS ORDERED: Sodium Chloride 0.9% 10 ML Syringe FLUSH PRN (15:38)
[2017-08-25] MEDS ORDERED: Albuterol 0.083% 2.5 MG/3 ML Neb Soln NEB PRN (15:38)
[2017-08-25] MEDS ORDERED: Ondansetron 4 MG/2 ML SDV IV PRN (15:38)
[2017-08-25] MEDS ORDERED: Benzonatate 100 MG Cap PO PRN (15:38)
[2017-08-25] MEDS ORDERED: Acetaminophen 325 MG Tab PO PRN (15:38)
[2017-08-25] MEDS ORDERED: Acetaminophen 650 MG Supp RECTAL PRN (15:38)
[2017-08-25] MEDS ORDERED: Ondansetron 4 MG Tab.DIS PO PRN (15:38)
[2017-08-25] MEDS ORDERED: Albuterol/Ipratropium 3.0-0.5 MG/3 ML Neb Soln NEB ONE (16:00)
[2017-08-25] MEDS ORDERED: Sodium Chloride 0.9% 500 ML IV ONE (16:00)
[2017-08-25] MEDS ORDERED: predniSONE 20 MG Tab PO ONE (16:00)
[2017-08-25] MEDS ORDERED: Levofloxacin/Dextrose 5%-Water 750 MG in Premix Bag 1 BAG IV SCH (16:00)
[2017-08-25] MEDS: Nicotine 14 MG/24 Hr Patch TRDERM SCH (16:16)
[2017-08-25] MEDS: guaiFENesin/Dextromethorphan 100-10 MG/5 ML Soln 10 ML Cup PO PRN (16:36)
[2017-08-25] MEDS: Sodium Chloride 0.9% 1,000 ML IV SCH (16:51)
[2017-08-25] MEDS: Metoprolol Tartrate 50 MG Tab PO SCH (20:07)
[2017-08-25] MEDS: Albuterol/Ipratropium 3.0-0.5 MG/3 ML Neb Soln NEB SCH (20:07)
[2017-08-25] MEDS: amLODIPine 2.5 MG Tab PO SCH (20:08)
[2017-08-25] MEDS: Simvastatin 20 MG Tab PO SCH (20:08)
[2017-08-26] MEDS: Sodium Chloride 0.9% 1,000 ML IV SCH (02:23)
[2017-08-26] MEDS: guaiFENesin/Dextromethorphan 100-10 MG/5 ML Soln 10 ML Cup PO PRN ×2 (04:25→12:08)
[2017-08-26] MEDS: Albuterol/Ipratropium 3.0-0.5 MG/3 ML Neb Soln NEB SCH ×4 (07:10→22:31)
[2017-08-26] MEDS: predniSONE 20 MG Tab PO SCH ×2 (07:56→15:52)
[2017-08-26] MEDS: Nicotine 14 MG/24 Hr Patch TRDERM SCH (08:15)
[2017-08-26] MEDS: amLODIPine 2.5 MG Tab PO SCH ×2 (08:17→22:31)
[2017-08-26] MEDS: Lisinopril 10 MG Tab PO SCH (08:18)
[2017-08-26] MEDS: Metoprolol Tartrate 50 MG Tab PO SCH ×2 (08:18→22:31)
[2017-08-26] MEDS ORDERED: Enoxaparin 30 MG/0.3 ML Syringe SUBCUT SCH (09:00)
[2017-08-26] MEDS: cefTRIAXone 1 GM in Sodium Chloride 0.9% 50 ML IV SCH (09:46)
--- NOTE | 2017-08-26 09:58 | PCM.PN ---
- General Info Date of Service: 08/26/17 Functional Status: Reports: Pain Controlled, Tolerating Diet - Review of Systems General: Denies: Fever Pulmonary: Reports: Shortness of Breath, Cough Systems Review Comment:: no acute events overnight. Feels a little less short of breath today. Heart rate has come down nicely. She has not had any fevers. No complaints of chest pain. Gram stain from the sputum sample revealed moderate gram-positive cocci. - Patient Data Vitals - Most Recent: Last Vital Signs Temp 36.7 C 08/26/17 07:46 Pulse 120 H 08/26/17 08:18 Resp 18 08/26/17 07:46 BP 130/56 L 08/26/17 08:18 Pulse Ox 89 L 08/26/17 07:46 Weight - Most Recent: 60.7 kg I&O - Last 24 Hours: Intake & Output 08/25/17 08/26/17 08/26/17 22:59 06:59 14:59 Intake Total 1065 1473 290 Output Total 925 700 275 Balance 140 773 15 Lab Results Last 24 Hours: Laboratory Results - last 24 hr 08/26/17 08/26/17 Range/Units 05:47 05:47 WBC 7.0 (4.5-11.0) K/uL RBC 3.94 (3.30-5.50) M/uL Hgb 8.5 L (12.0-15.0) g/dL Hct 29.9 L (36.0-48.0) % MCV 76 L (80-98) fL MCH 22 L (27-31) pg MCHC 28 L (32-36) % Plt Count 300 (150-400) K/uL Sodium 137 L (140-148) mmol/L Potassium 4.5 (3.6-5.2) mmol/L Chloride 102 (100-108) mmol/L Carbon Dioxide 27 (21-32) mmol/L Anion Gap 12.5 (5.0-14.0) mmol/L BUN 9 D (7-18) mg/dL Creatinine 0.7 (0.6-1.0) mg/dL Est Cr Clr Drug Dosing 45.95 mL/min Estimated GFR (MDRD) > 60 (>60) Glucose 160 H (74-106) mg/dL Calcium 8.4 L (8.5-10.1) mg/dL [place] Results Last 24 Hours: Microbiology 08/25/17 21:50 Gram Stain - Final Sputum - Expectorated Med Orders - Current: Current Medications Acetaminophen (Tylenol) 650 mg RECTAL Q4H PRN PRN Reason: Mild pain/fever Acetaminophen (Tylenol) 650 mg PO Q4H PRN PRN Reason: Pain (Mild 1-3)/fever Albuterol (Proventil Neb Soln) 2.5 mg NEB Q4H PRN PRN Reason: Shortness Of Breath/wheezing Albuterol/Ipratropium (Duoneb 3.0-0.5 Mg/3 Ml) 3 ml NEB QIDRT [facility] Last Admin: 08/26/17 07:10 Dose: 3 ml Amlodipine Besylate (Norvasc) 2.5 mg PO BID [facility] Last Admin: 08/26/17 08:17 Dose: 2.5 mg Benzonatate (Tessalon Perles) 100 mg PO TID PRN PRN Reason: Cough Last Admin: 08/25/17 22:36 Dose: 100 mg Enoxaparin Sodium (Lovenox) 30 mg SUBCUT DAILY [facility] Last Admin: 08/26/17 08:18 Dose: 30 mg Guaifenesin/Dextromethorphan (Robitussin Dm) 10 ml PO Q4H PRN PRN Reason: Cough Last Admin: 08/26/17 04:25 Dose: 10 ml Ceftriaxone Sodium 1 gm/ (Sodium Chloride) 50 mls @ 100 mls/hr IV Q24H [facility] Last Admin: 08/26/17 09:46 Dose: 100 mls/hr Lisinopril (Prinivil) 10 mg PO DAILY [facility] Last Admin: 08/26/17 08:18 Dose: 10 mg Metoprolol Tartrate (Lopressor) 50 mg PO BID [facility] Last Admin: 08/26/17 08:18 Dose: 50 mg Nicotine (Habitrol) 14 mg TRDERM DAILY [facility] Last Admin: 08/26/17 08:15 Dose: 14 mg Ondansetron HCl (Zofran Odt) 4 mg PO Q6H PRN PRN Reason: Nausea able to take PO Ondansetron HCl (Zofran) 4 mg IV Q6H PRN PRN Reason: Nausea/Vomiting Prednisone (Prednisone) [facility] Last Admin: 08/26/17 07:56 Dose: 20 mg Senna/Docusate Sodium (Senna Plus) 1 tab PO BID PRN PRN Reason: Constipation Simvastatin (Zocor) 40 mg PO BEDTIME [facility] Last Admin: 08/25/17 20:08 Dose: 40 mg Sodium Chloride (Saline Flush) 10 ml FLUSH ASDIRECTED PRN PRN Reason: Keep Vein Open Discontinued Medications Albuterol/Ipratropium (Duoneb 3.0-0.5 Mg/3 Ml) 3 ml NEB ONETIME ONE Stop: 08/25/17 16:01 Last Admin: 08/25/17 16:13 Dose: 3 ml Levofloxacin/Dextrose 750 mg/ (Premix) 150 mls @ 100 mls/hr IV Q48H [facility] Last Admin: 08/25/17 16:17 Dose: 100 mls/hr Sodium Chloride (Normal Saline) 1,000 mls @ 125 mls/hr IV ASDIRECTED [facility] Last Admin: 08/26/17 02:23 Dose: 125 mls/hr Sodium Chloride (Normal Saline) 500 mls @ 999 mls/hr IV .BOLUS ONE Stop: 08/25/17 16:30 Last Admin: 08/25/17 16:08 Dose: 999 mls/hr Levofloxacin/Dextrose 750 mg/ (Premix) 150 mls @ 100 mls/hr IV Q24H [facility] Prednisone (Prednisone) 40 mg PO ONETIME ONE Stop: 08/25/17 16:01 Last Admin: 08/25/17 16:16 Dose: 40 mg - Exam Quality Assessment: Supplemental Oxygen General: Alert, Oriented, Cooperative, No Acute Distress Neck: Supple Lungs: Normal Respiratory Effort, Crackles (few left lung base). No: Wheezing Cardiovascular: Regular Rate, Regular Rhythm GI/Abdominal Exam: Soft, No Distention Extremities: No Pedal Edema Psy/Mental Status: Alert, Normal Affect - Problem List & Annotations (1) Pneumonia of both lower lobes SNOMED Code(s): 104753341 Code(s): J18.9 - PNEUMONIA, UNSPECIFIED ORGANISM Status: Acute Current Visit: Yes Qualifiers: Pneumonia type: due to unspecified organism Qualified Code(s): J18.9 - Pneumonia, unspecified organism (2) Acute respiratory failure with hypoxia SNOMED Code(s): 94563354 Code(s): J96.01 - ACUTE RESPIRATORY FAILURE WITH HYPOXIA Status: Acute Current Visit: Yes (3) Bladder cancer SNOMED Code(s): 135782075 Code(s): C67.9 - MALIGNANT NEOPLASM OF BLADDER, UNSPECIFIED Status: Chronic Current Visit: No Qualifiers: Bladder location: unspecified site Qualified Code(s): C67.9 - Malignant neoplasm of bladder, unspecified (4) Tobacco dependence SNOMED Code(s): 38960929 Code(s): F17.200 - NICOTINE DEPENDENCE, UNSPECIFIED, UNCOMPLICATED Status: Chronic Current Visit: No - Problem List Review Problem List Initiated/Reviewed/Updated: Yes - My Orders Last 24 Hours: My Active Orders 08/25/17 15:09 Resuscitation Status Routine 08/25/17 15:38 Patient Status [ADT] Routine Bedrest Bedside Commode [RC] ASDIRECTED Intake and Output [RC] QSHIFT Notify Provider Vital Signs [RC] ASDIRECTED Oxygen Therapy [RC] Q12H Peripheral IV Care [RC] . DIRECTED RT Aerosol Therapy [RC] ASDIRECTED Up With Assistance [RC] ASDIRECTED Vital Signs [RC] Q4H Acetaminophen [Tylenol] 650 mg PO Q4H PRN Acetaminophen [Tylenol] 650 mg RECTAL Q4H PRN Albuterol [Proventil Neb Soln] 2.5 mg NEB Q4H PRN Benzonatate [Tessalon Perles] 100 mg PO TID PRN Dextromethorphan/guaiFENesin [Robitussin DM] 10 ml PO Q4H PRN Docusate Sodium/Sennosides [Senna Plus] 1 tab PO BID PRN Nicotine [Habitrol] 14 mg TRDERM DAILY Ondansetron [Zofran ODT] 4 mg PO Q6H PRN Ondansetron [Zofran] 4 mg IV Q6H PRN Sodium Chloride 0.9% [Saline Flush] 10 ml FLUSH ASDIRECTED PRN Peripheral IV Insertion Adult [OM.PC] Routine 08/25/17 21:00 Albuterol/Ipratropium [DuoNeb 3.0-0.5 MG/3 ML] 3 ml NEB QIDRT Metoprolol Tartrate [Lopressor] 50 mg PO BID Simvastatin [Zocor] 40 mg PO BEDTIME amLODIPine [Norvasc] 2.5 mg PO BID 08/25/17 21:50 CULTURE RESPIRATORY + SMEAR [RM] Routine 08/25/17 Dinner Regular Diet [DIET] 08/26/17 08:00 predniSONE 20 mg PO BIDAC 08/26/17 09:00 Enoxaparin [Lovenox] 30 mg SUBCUT DAILY Lisinopril [Prinivil] 10 mg PO DAILY 08/26/17 09:30 cefTRIAXone [Rocephin] 1 gm Sodium Chloride 0.9% [Normal Saline] 50 ml IV Q24H 08/26/17 09:56 Convert IV to Saline Lock [OM.PC] Routine 08/26/17 16:00 Levofloxacin [Levaquin] 250 mg PO Q24H Levofloxacin [Levaquin] 500 mg PO Q24H 08/27/17 05:00 BASIC METABOLIC PANEL,BMP [CHEM] Timed CBC W/O DIFF,HEMOGRAM [HEME] Timed (1) - Plan Plan:: ASSESSMENT AND PLAN - Bilateral pneumonia with hypoxic respiratory failure - still significant hypoxia but symptomatically feels better. No fevers overnight and white blood cell count has come down nicely. Sputum culture pending and Gram stain showed gram-positive cocci. -continue Levofloxacin -add ceftriaxone until cultures are final -Supplement oxygen -Scheduled and as needed nebulizers -continue prednisone 20 mg twice daily -telemetry Bladder cancer - recent diagnosis and has had one surgery and a second surgery as planned. No active hematuria at this time. -Outpatient follow-up Essential hypertension - blood pressure stable and usual medications have been continued. Tobacco dependence - no interest in quitting at this time. Nicotine patch offered. Maintenance issues - - DVT prophylaxis - enoxaparin - GI prophylaxis - not indicated - Nutrition - regular diet Disposition - anticipate discharge home after the hospital stay Farhan Galindo M.D.
[2017-08-26] MEDS ORDERED: Levofloxacin 500 MG Tab PO SCH (16:00)
[2017-08-26] MEDS ORDERED: Levofloxacin 250 MG Tab PO SCH (16:00)
[2017-08-26] MEDS ORDERED: Levofloxacin/Dextrose 5%-Water 750 MG in Premix Bag 1 BAG IV SCH (16:00)
[2017-08-26] MEDS: Simvastatin 20 MG Tab PO SCH (22:31)
[2017-08-27] MEDS: Albuterol/Ipratropium 3.0-0.5 MG/3 ML Neb Soln NEB SCH ×4 (07:09→21:07)
[2017-08-27] MEDS: Metoprolol Tartrate 50 MG Tab PO SCH ×2 (08:52→21:08)
[2017-08-27] MEDS: predniSONE 20 MG Tab PO SCH ×2 (08:52→16:12)
[2017-08-27] MEDS: amLODIPine 2.5 MG Tab PO SCH ×2 (08:54→21:08)
[2017-08-27] MEDS: Enoxaparin 40 MG/0.4 ML Syringe SUBCUT SCH (08:54)
[2017-08-27] MEDS: Lisinopril 10 MG Tab PO SCH (08:54)
[2017-08-27] MEDS: cefTRIAXone 1 GM in Sodium Chloride 0.9% 50 ML IV SCH (08:55)
[2017-08-27] MEDS: Nicotine 14 MG/24 Hr Patch TRDERM SCH (09:01)
--- NOTE | 2017-08-27 09:11 | PCM.PN ---
- General Info Date of Service: 08/27/17 Functional Status: Reports: Pain Controlled, Tolerating Diet - Review of Systems General: Denies: Fever Pulmonary: Reports: Shortness of Breath, Cough Systems Review Comment:: No acute events overnight. Intermittent dry cough. She has not had any fevers. Still short of breath but feels better than yesterday. No complaints of chest pain or abdominal pain. - Patient Data Vitals - Most Recent: Last Vital Signs Temp 36.6 C 08/27/17 07:46 Pulse 108 H 08/27/17 08:52 Resp 18 08/27/17 07:46 BP 137/58 L 08/27/17 08:54 Pulse Ox 90 L 08/27/17 07:46 Weight - Most Recent: 56.1 kg I&O - Last 24 Hours: Intake & Output 08/26/17 08/27/17 08/27/17 22:59 06:59 14:59 Intake Total 240 300 Output Total 650 1850 200 Balance -410 -7930 -200 Lab Results Last 24 Hours: Laboratory Results - last 24 hr 08/27/17 08/27/17 Range/Units 05:18 05:18 WBC 10.9 (4.5-11.0) K/uL RBC 3.99 (3.30-5.50) M/uL Hgb 8.8 L (12.0-15.0) g/dL Hct 30.5 L (36.0-48.0) % MCV 76 L (80-98) fL MCH 22 L (27-31) pg MCHC 29 L (32-36) % Plt Count 371 (150-400) K/uL Sodium 140 (140-148) mmol/L Potassium 4.3 (3.6-5.2) mmol/L Chloride 104 (100-108) mmol/L Carbon Dioxide 29 (21-32) mmol/L Anion Gap 6.9 (5.0-14.0) mmol/L BUN 11 (7-18) mg/dL Creatinine 0.8 (0.6-1.0) mg/dL Est Cr Clr Drug Dosing 40.25 mL/min Estimated GFR (MDRD) > 60 (>60) Glucose 135 H (74-106) mg/dL Calcium 8.6 (8.5-10.1) mg/dL [place] Results Last 24 Hours: Microbiology 08/25/17 21:50 Gram Stain - Final Sputum - Expectorated Respiratory Culture - Preliminary NORMAL RESPIRATORY ANNA 1 DAY Med Orders - Current: Current Medications Acetaminophen (Tylenol) 650 mg RECTAL Q4H PRN PRN Reason: Mild pain/fever Acetaminophen (Tylenol) 650 mg PO Q4H PRN PRN Reason: Pain (Mild 1-3)/fever Albuterol (Proventil Neb Soln) 2.5 mg NEB Q4H PRN PRN Reason: Shortness Of Breath/wheezing Albuterol/Ipratropium (Duoneb 3.0-0.5 Mg/3 Ml) 3 ml NEB QIDRT [facility] Last Admin: 08/27/17 07:09 Dose: 3 ml Amlodipine Besylate (Norvasc) 2.5 mg PO BID [facility] Last Admin: 08/27/17 08:54 Dose: 2.5 mg Benzonatate (Tessalon Perles) 100 mg PO TID PRN PRN Reason: Cough Last Admin: 08/25/17 22:36 Dose: 100 mg Enoxaparin Sodium (Lovenox) 40 mg SUBCUT DAILY [facility] Last Admin: 08/27/17 08:54 Dose: 40 mg Guaifenesin/Dextromethorphan (Robitussin Dm) 10 ml PO Q4H PRN PRN Reason: Cough Last Admin: 08/26/17 12:08 Dose: 10 ml Ceftriaxone Sodium 1 gm/ (Sodium Chloride) 50 mls @ 100 mls/hr IV Q24H [facility] Last Admin: 08/27/17 08:55 Dose: 100 mls/hr Levofloxacin 250 mg/ (Levofloxacin 500 mg) 750 mg PO Q24H [facility] Last Admin: 08/26/17 15:53 Dose: 750 mg Lisinopril (Prinivil) 10 mg PO DAILY [facility] Last Admin: 08/27/17 08:54 Dose: 10 mg Metoprolol Tartrate (Lopressor) 50 mg PO BID [facility] Last Admin: 08/27/17 08:52 Dose: 50 mg Nicotine (Habitrol) 14 mg TRDERM DAILY [facility] Last Admin: 08/27/17 09:01 Dose: 14 mg Ondansetron HCl (Zofran Odt) 4 mg PO Q6H PRN PRN Reason: Nausea able to take PO Ondansetron HCl (Zofran) 4 mg IV Q6H PRN PRN Reason: Nausea/Vomiting Prednisone (Prednisone) 20 mg PO BIDAC [facility] Last Admin: 08/27/17 08:52 Dose: 20 mg Senna/Docusate Sodium (Senna Plus) 1 tab PO BID PRN PRN Reason: Constipation Simvastatin (Zocor) 40 mg PO BEDTIME [facility] Last Admin: 08/26/17 22:31 Dose: 40 mg Sodium Chloride (Saline Flush) 10 ml FLUSH ASDIRECTED PRN PRN Reason: Keep Vein Open Last Admin: 08/26/17 13:31 Dose: 10 ml Discontinued Medications Albuterol/Ipratropium (Duoneb 3.0-0.5 Mg/3 Ml) 3 ml NEB ONETIME ONE Stop: 08/25/17 16:01 Last Admin: 08/25/17 16:13 Dose: 3 ml Enoxaparin Sodium (Lovenox) 30 mg SUBCUT DAILY [facility] Last Admin: 08/26/17 08:18 Dose: 30 mg Levofloxacin/Dextrose 750 mg/ (Premix) 150 mls @ 100 mls/hr IV Q48H [facility] Last Admin: 08/25/17 16:17 Dose: 100 mls/hr Sodium Chloride (Normal Saline) 1,000 mls @ 125 mls/hr IV ASDIRECTED [facility] Last Admin: 08/26/17 02:23 Dose: 125 mls/hr Sodium Chloride (Normal Saline) 500 mls @ 999 mls/hr IV .BOLUS ONE Stop: 08/25/17 16:30 Last Admin: 08/25/17 16:08 Dose: 999 mls/hr Levofloxacin/Dextrose 750 mg/ (Premix) 150 mls @ 100 mls/hr IV Q24H [facility] Prednisone (Prednisone) 40 mg PO ONETIME ONE Stop: 08/25/17 16:01 Last Admin: 08/25/17 16:16 Dose: 40 mg - Exam Quality Assessment: Supplemental Oxygen General: Alert, Oriented, Cooperative, No Acute Distress Neck: Supple Lungs: Normal Respiratory Effort, Crackles (few both bases). No: Wheezing Cardiovascular: Regular Rate, Regular Rhythm GI/Abdominal Exam: Normal Bowel Sounds, Soft Extremities: No Pedal Edema Skin: Warm, Dry Psy/Mental Status: Alert, Normal Affect - Problem List & Annotations (1) Pneumonia of both lower lobes SNOMED Code(s): 381763023 Code(s): J18.9 - PNEUMONIA, UNSPECIFIED ORGANISM Status: Acute Current Visit: Yes Qualifiers: Pneumonia type: due to unspecified organism Qualified Code(s): J18.9 - Pneumonia, unspecified organism (2) Acute respiratory failure with hypoxia SNOMED Code(s): 47039298 Code(s): J96.01 - ACUTE RESPIRATORY FAILURE WITH HYPOXIA Status: Acute Current Visit: Yes (3) Bladder cancer SNOMED Code(s): 278102379 Code(s): C67.9 - MALIGNANT NEOPLASM OF BLADDER, UNSPECIFIED Status: Chronic Current Visit: No Qualifiers: Bladder location: unspecified site Qualified Code(s): C67.9 - Malignant neoplasm of bladder, unspecified (4) Tobacco dependence SNOMED Code(s): 00607770 Code(s): F17.200 - NICOTINE DEPENDENCE, UNSPECIFIED, UNCOMPLICATED Status: Chronic Current Visit: No - Problem List Review Problem List Initiated/Reviewed/Updated: Yes - My Orders Last 24 Hours: My Active Orders 08/26/17 09:00 Lisinopril [Prinivil] 10 mg PO DAILY 08/26/17 09:30 cefTRIAXone [Rocephin] 1 gm Sodium Chloride 0.9% [Normal Saline] 50 ml IV Q24H 08/26/17 09:56 Convert IV to Saline Lock [OM.PC] Routine 08/26/17 16:00 Levofloxacin [Levaquin] 750 mg PO Q24H 08/27/17 09:00 Enoxaparin [Lovenox] 40 mg SUBCUT DAILY - Plan Plan:: ASSESSMENT AND PLAN - Bilateral pneumonia with hypoxic respiratory failure - clinically better but still requiring 3-4 L of oxygen. Respiratory culture with normal respiratory anna to date. Feels better today. -continue Levofloxacin -add ceftriaxone until cultures are final -Supplement oxygen -Scheduled and as needed nebulizers -continue prednisone 20 mg twice daily -Discontinue telemetry Bladder cancer - recent diagnosis and has had one surgery and a second surgery as planned. No active hematuria at this time. -Outpatient follow-up Essential hypertension - blood pressure stable. -Continue home meds Tobacco dependence - no interest in quitting at this time. Nicotine patch offered. Maintenance issues - - DVT prophylaxis - enoxaparin - GI prophylaxis - not indicated - Nutrition - regular diet Disposition - anticipate discharge home after the hospital stay Farhan Galindo M.D.
[2017-08-27] MEDS: guaiFENesin/Dextromethorphan 100-10 MG/5 ML Soln 10 ML Cup PO PRN ×2 (09:48→21:09)
[2017-08-27] MEDS: Simvastatin 20 MG Tab PO SCH (21:07)
[2017-08-28] MEDS: Albuterol/Ipratropium 3.0-0.5 MG/3 ML Neb Soln NEB SCH ×4 (07:15→21:45)
[2017-08-28] MEDS: Nicotine 14 MG/24 Hr Patch TRDERM SCH (08:08)
[2017-08-28] MEDS: predniSONE 20 MG Tab PO SCH ×2 (08:08→15:31)
[2017-08-28] MEDS: Metoprolol Tartrate 50 MG Tab PO SCH ×2 (08:08→21:33)
[2017-08-28] MEDS: Enoxaparin 40 MG/0.4 ML Syringe SUBCUT SCH (08:08)
[2017-08-28] MEDS: amLODIPine 2.5 MG Tab PO SCH ×2 (08:09→21:34)
[2017-08-28] MEDS: Lisinopril 10 MG Tab PO SCH (08:09)
[2017-08-28] MEDS: cefTRIAXone 1 GM in Sodium Chloride 0.9% 50 ML IV SCH (09:08)
--- NOTE | 2017-08-28 09:36 | PCM.PN ---
- General Info Date of Service: 08/28/17 Functional Status: Reports: Pain Controlled, Tolerating Diet - Review of Systems Pulmonary: Reports: Shortness of Breath, Cough Systems Review Comment:: No acute events overnight. Feels less short of breath today and supplemental oxygen requirement continues to decrease. She is now down to 2 L. She has not had any fevers. Has been able to walk to the bathroom and back with supplemental oxygen in place. No reports of chest pain or abdominal pain. - Patient Data Vitals - Most Recent: Last Vital Signs Temp 36.2 C 08/28/17 08:00 Pulse 107 H 08/28/17 08:08 Resp 16 08/28/17 08:00 BP 151/80 H 08/28/17 08:09 Pulse Ox 88 L 08/28/17 08:00 Weight - Most Recent: 53.1 kg I&O - Last 24 Hours: Intake & Output 08/27/17 08/28/17 08/28/17 22:59 06:59 14:59 Intake Total 120 240 240 Output Total 600 300 Balance 120 -360 -60 [place] Results Last 24 Hours: Microbiology 08/25/17 21:50 Gram Stain - Final Sputum - Expectorated Respiratory Culture - Final NORMAL RESPIRATORY HI 2 DAYS Med Orders - Current: Current Medications Acetaminophen (Tylenol) 650 mg RECTAL Q4H PRN PRN Reason: Mild pain/fever Acetaminophen (Tylenol) 650 mg PO Q4H PRN PRN Reason: Pain (Mild 1-3)/fever Albuterol (Proventil Neb Soln) 2.5 mg NEB Q4H PRN PRN Reason: Shortness Of Breath/wheezing Albuterol/Ipratropium (Duoneb 3.0-0.5 Mg/3 Ml) 3 ml NEB QIDRT [facility] Last Admin: 08/28/17 07:15 Dose: 3 ml Amlodipine Besylate (Norvasc) 2.5 mg PO BID [facility] Last Admin: 08/28/17 08:09 Dose: 2.5 mg Benzonatate (Tessalon Perles) 100 mg PO TID PRN PRN Reason: Cough Last Admin: 08/25/17 22:36 Dose: 100 mg Enoxaparin Sodium (Lovenox) 40 mg SUBCUT DAILY [facility] Last Admin: 08/28/17 08:08 Dose: 40 mg Guaifenesin/Dextromethorphan (Robitussin Dm) 10 ml PO Q4H PRN PRN Reason: Cough Last Admin: 08/27/17 21:09 Dose: 10 ml Ceftriaxone Sodium 1 gm/ (Sodium Chloride) 50 mls @ 100 mls/hr IV Q24H [facility] Stop: 08/28/17 12:00 Last Admin: 08/28/17 09:08 Dose: 100 mls/hr Levofloxacin 250 mg/ (Levofloxacin 500 mg) 750 mg PO Q24H [facility] Last Admin: 08/27/17 16:13 Dose: 750 mg Lisinopril (Prinivil) 10 mg PO DAILY [facility] Last Admin: 08/28/17 08:09 Dose: 10 mg Metoprolol Tartrate (Lopressor) 50 mg PO BID [facility] Last Admin: 08/28/17 08:08 Dose: 50 mg Nicotine (Habitrol) 14 mg TRDERM DAILY [facility] Last Admin: 08/28/17 08:08 Dose: 14 mg Ondansetron HCl (Zofran Odt) 4 mg PO Q6H PRN PRN Reason: Nausea able to take PO Ondansetron HCl (Zofran) 4 mg IV Q6H PRN PRN Reason: Nausea/Vomiting Prednisone (Prednisone) 20 mg PO BIDAC [facility] Last Admin: 08/28/17 08:08 Dose: 20 mg Senna/Docusate Sodium (Senna Plus) 1 tab PO BID PRN PRN Reason: Constipation Simvastatin (Zocor) 40 mg PO BEDTIME [facility] Last Admin: 08/27/17 21:07 Dose: 40 mg Sodium Chloride (Saline Flush) 10 ml FLUSH ASDIRECTED PRN PRN Reason: Keep Vein Open Last Admin: 08/26/17 13:31 Dose: 10 ml Discontinued Medications Albuterol/Ipratropium (Duoneb 3.0-0.5 Mg/3 Ml) 3 ml NEB ONETIME ONE Stop: 08/25/17 16:01 Last Admin: 08/25/17 16:13 Dose: 3 ml Enoxaparin Sodium (Lovenox) 30 mg SUBCUT DAILY [facility] Last Admin: 08/26/17 08:18 Dose: 30 mg Levofloxacin/Dextrose 750 mg/ (Premix) 150 mls @ 100 mls/hr IV Q48H [facility] Last Admin: 08/25/17 16:17 Dose: 100 mls/hr Sodium Chloride (Normal Saline) 1,000 mls @ 125 mls/hr IV ASDIRECTED [facility] Last Admin: 08/26/17 02:23 Dose: 125 mls/hr Sodium Chloride (Normal Saline) 500 mls @ 999 mls/hr IV .BOLUS ONE Stop: 08/25/17 16:30 Last Admin: 08/25/17 16:08 Dose: 999 mls/hr Levofloxacin/Dextrose 750 mg/ (Premix) 150 mls @ 100 mls/hr IV Q24H [facility] Prednisone (Prednisone) 40 mg PO ONETIME ONE Stop: 08/25/17 16:01 Last Admin: 08/25/17 16:16 Dose: 40 mg - Exam Quality Assessment: Supplemental Oxygen General: Alert, Oriented, Cooperative, No Acute Distress Lungs: Clear to Auscultation, Normal Respiratory Effort Cardiovascular: Regular Rate, Regular Rhythm Extremities: No Pedal Edema Psy/Mental Status: Alert, Normal Affect - Problem List & Annotations (1) Pneumonia of both lower lobes SNOMED Code(s): 381168839 Code(s): J18.9 - PNEUMONIA, UNSPECIFIED ORGANISM Status: Acute Current Visit: Yes Qualifiers: Pneumonia type: due to unspecified organism Qualified Code(s): J18.9 - Pneumonia, unspecified organism (2) Acute respiratory failure with hypoxia SNOMED Code(s): 55757111 Code(s): J96.01 - ACUTE RESPIRATORY FAILURE WITH HYPOXIA Status: Acute Current Visit: Yes (3) Bladder cancer SNOMED Code(s): 422779325 Code(s): C67.9 - MALIGNANT NEOPLASM OF BLADDER, UNSPECIFIED Status: Chronic Current Visit: No Qualifiers: Bladder location: unspecified site Qualified Code(s): C67.9 - Malignant neoplasm of bladder, unspecified (4) Tobacco dependence SNOMED Code(s): 59059890 Code(s): F17.200 - NICOTINE DEPENDENCE, UNSPECIFIED, UNCOMPLICATED Status: Chronic Current Visit: No - Problem List Review Problem List Initiated/Reviewed/Updated: Yes - My Orders Last 24 Hours: My Active Orders 08/27/17 09:00 Enoxaparin [Lovenox] 40 mg SUBCUT DAILY 08/29/17 05:00 CBC W/O DIFF,HEMOGRAM [HEME] Timed (1) - Plan Plan:: ASSESSMENT AND PLAN - Bilateral pneumonia with hypoxic respiratory failure - clinically better and now down to 2 L of supplemental oxygen. Cultures negative so far. -continue Levofloxacin -Discontinue ceftriaxone -Supplement oxygen -Scheduled and as needed nebulizers -continue prednisone 20 mg twice daily -Discontinue telemetry Bladder cancer - recent diagnosis and has had one surgery and a second surgery as planned. No active hematuria at this time. -Outpatient follow-up Essential hypertension - blood pressure stable. -Continue home meds Tobacco dependence - no interest in quitting at this time. Nicotine patch offered. Maintenance issues - - DVT prophylaxis - enoxaparin - GI prophylaxis - not indicated - Nutrition - regular diet Disposition - anticipate discharge home after the hospital stay, hopefully in the next 1 or 2 days Farhan Galindo M.D.
[2017-08-28] MEDS: Simvastatin 20 MG Tab PO SCH (21:34)
[2017-08-29] MEDS: Albuterol/Ipratropium 3.0-0.5 MG/3 ML Neb Soln NEB SCH ×4 (07:22→20:48)
[2017-08-29] MEDS: Nicotine 14 MG/24 Hr Patch TRDERM SCH (08:05)
[2017-08-29] MEDS: predniSONE 20 MG Tab PO SCH ×2 (08:05→15:30)
[2017-08-29] MEDS: Metoprolol Tartrate 50 MG Tab PO SCH ×2 (08:06→20:48)
[2017-08-29] MEDS: Lisinopril 10 MG Tab PO SCH (08:07)
[2017-08-29] MEDS: amLODIPine 2.5 MG Tab PO SCH ×2 (08:07→20:50)
[2017-08-29] MEDS: Enoxaparin 40 MG/0.4 ML Syringe SUBCUT SCH (08:07)
--- NOTE | 2017-08-29 11:38 | PCM.PN ---
- General Info Date of Service: 08/29/17 - Review of Systems General: Reports: Weakness Pulmonary: Reports: Shortness of Breath Systems Review Comment:: No acute events overnight. Shortness of breath slowly improving. Cough seems to be slowly improving. She has not had any fevers. Still requiring supplemental oxygen but slowly getting better. Tolerating current medications. - Patient Data Vitals - Most Recent: Last Vital Signs Temp 36.6 C 08/29/17 11:17 Pulse 94 08/29/17 11:17 Resp 18 08/29/17 11:17 BP 154/53 H 08/29/17 11:17 Pulse Ox 89 L 08/29/17 11:17 Weight - Most Recent: 53.1 kg I&O - Last 24 Hours: Intake & Output 08/28/17 08/29/17 08/29/17 22:59 06:59 14:59 Intake Total 1100 455 Output Total 100 Balance 1000 455 Lab Results Last 24 Hours: Laboratory Results - last 24 hr 08/29/17 Range/Units 05:48 WBC 10.8 (4.5-11.0) K/uL RBC 4.44 (3.30-5.50) M/uL Hgb 9.7 L (12.0-15.0) g/dL Hct 33.4 L (36.0-48.0) % MCV 75 L (80-98) fL MCH 22 L (27-31) pg MCHC 29 L (32-36) % Plt Count 460 H (150-400) K/uL [place] Results Last 24 Hours: Microbiology 08/25/17 21:50 Gram Stain - Final Sputum - Expectorated Respiratory Culture - Final NORMAL RESPIRATORY HI 2 DAYS Med Orders - Current: Current Medications Acetaminophen (Tylenol) 650 mg RECTAL Q4H PRN PRN Reason: Mild pain/fever Acetaminophen (Tylenol) 650 mg PO Q4H PRN PRN Reason: Pain (Mild 1-3)/fever Albuterol (Proventil Neb Soln) 2.5 mg NEB Q4H PRN PRN Reason: Shortness Of Breath/wheezing Albuterol/Ipratropium (Duoneb 3.0-0.5 Mg/3 Ml) 3 ml NEB QIDRT [facility] Last Admin: 08/29/17 10:49 Dose: 3 ml Amlodipine Besylate (Norvasc) 2.5 mg PO BID [facility] Last Admin: 08/29/17 08:07 Dose: 2.5 mg Benzonatate (Tessalon Perles) 100 mg PO TID PRN PRN Reason: Cough Last Admin: 08/25/17 22:36 Dose: 100 mg Enoxaparin Sodium (Lovenox) 40 mg SUBCUT DAILY [facility] Last Admin: 08/29/17 08:07 Dose: 40 mg Guaifenesin/Dextromethorphan (Robitussin Dm) 10 ml PO Q4H PRN PRN Reason: Cough Last Admin: 08/27/17 21:09 Dose: 10 ml Levofloxacin 250 mg/ (Levofloxacin 500 mg) 750 mg PO Q24H [facility] Last Admin: 08/28/17 15:31 Dose: 750 mg Lisinopril (Prinivil) 10 mg PO DAILY [facility] Last Admin: 08/29/17 08:07 Dose: 10 mg Metoprolol Tartrate (Lopressor) 50 mg PO BID [facility] Last Admin: 08/29/17 08:06 Dose: 50 mg Nicotine (Habitrol) 14 mg TRDERM DAILY [facility] Last Admin: 08/29/17 08:05 Dose: 14 mg Ondansetron HCl (Zofran Odt) 4 mg PO Q6H PRN PRN Reason: Nausea able to take PO Ondansetron HCl (Zofran) 4 mg IV Q6H PRN PRN Reason: Nausea/Vomiting [facility] Last Admin: 08/29/17 08:05 Dose: 20 mg Senna/Docusate Sodium (Senna Plus) 1 tab PO BID PRN PRN Reason: Constipation Last Admin: 08/29/17 09:45 Dose: 1 tab Simvastatin (Zocor) 40 mg PO BEDTIME [facility] Last Admin: 08/28/17 21:34 Dose: 40 mg Sodium Chloride (Saline Flush) 10 ml FLUSH ASDIRECTED PRN PRN Reason: Keep Vein Open Last Admin: 08/26/17 13:31 Dose: 10 ml Discontinued Medications Albuterol/Ipratropium (Duoneb 3.0-0.5 Mg/3 Ml) 3 ml NEB ONETIME ONE Stop: 08/25/17 16:01 Last Admin: 08/25/17 16:13 Dose: 3 ml Enoxaparin Sodium (Lovenox) 30 mg SUBCUT DAILY [facility] Last Admin: 08/26/17 08:18 Dose: 30 mg Levofloxacin/Dextrose 750 mg/ (Premix) 150 mls @ 100 mls/hr IV Q48H [facility] Last Admin: 08/25/17 16:17 Dose: 100 mls/hr Sodium Chloride (Normal Saline) 1,000 mls @ 125 mls/hr IV ASDIRECTED [facility] Last Admin: 08/26/17 02:23 Dose: 125 mls/hr Sodium Chloride (Normal Saline) 500 mls @ 999 mls/hr IV .BOLUS ONE Stop: 08/25/17 16:30 Last Admin: 08/25/17 16:08 Dose: 999 mls/hr Ceftriaxone Sodium 1 gm/ (Sodium Chloride) 50 mls @ 100 mls/hr IV Q24H [facility] Stop: 08/28/17 12:00 Last Admin: 08/28/17 09:08 Dose: 100 mls/hr Levofloxacin/Dextrose 750 mg/ (Premix) 150 mls @ 100 mls/hr IV Q24H [facility] Prednisone (Prednisone) 40 mg PO ONETIME ONE Stop: 08/25/17 16:01 Last Admin: 08/25/17 16:16 Dose: 40 mg - Exam Quality Assessment: Supplemental Oxygen General: Alert, Oriented, Cooperative, No Acute Distress Neck: Supple Lungs: Clear to Auscultation, Normal Respiratory Effort Cardiovascular: Regular Rate, Regular Rhythm GI/Abdominal Exam: Soft Extremities: No Pedal Edema Psy/Mental Status: Alert, Normal Affect - Problem List & Annotations (1) Pneumonia of both lower lobes SNOMED Code(s): 504431286 Code(s): J18.9 - PNEUMONIA, UNSPECIFIED ORGANISM Status: Acute Current Visit: Yes Qualifiers: Pneumonia type: due to unspecified organism Qualified Code(s): J18.9 - Pneumonia, unspecified organism (2) Acute respiratory failure with hypoxia SNOMED Code(s): 31709981 Code(s): J96.01 - ACUTE RESPIRATORY FAILURE WITH HYPOXIA Status: Acute Current Visit: Yes (3) Bladder cancer SNOMED Code(s): 607767045 Code(s): C67.9 - MALIGNANT NEOPLASM OF BLADDER, UNSPECIFIED Status: Chronic Current Visit: No Qualifiers: Bladder location: unspecified site Qualified Code(s): C67.9 - Malignant neoplasm of bladder, unspecified (4) Tobacco dependence SNOMED Code(s): 00068735 Code(s): F17.200 - NICOTINE DEPENDENCE, UNSPECIFIED, UNCOMPLICATED Status: Chronic Current Visit: No - Problem List Review Problem List Initiated/Reviewed/Updated: Yes - Plan Plan:: ASSESSMENT AND PLAN - Bilateral pneumonia with hypoxic respiratory failure - clinically better and slowly improving. Tolerating current medications. Still requiring supplemental oxygen. -continue Levofloxacin -Supplement oxygen -Scheduled and as needed nebulizers -continue prednisone 20 mg twice daily -Discontinue telemetry Bladder cancer - recent diagnosis and has had one surgery and a second surgery as planned. No active hematuria at this time. -Outpatient follow-up Essential hypertension - blood pressure stable. -Continue home meds Tobacco dependence - no interest in quitting at this time. Nicotine patch offered. Maintenance issues - - DVT prophylaxis - enoxaparin - GI prophylaxis - not indicated - Nutrition - regular diet Disposition - anticipate discharge home after the hospital stay, hopefully in the next 1 or 2 days Farhan Galindo M.D.
[2017-08-29] MEDS: Simvastatin 20 MG Tab PO SCH (20:50)
[2017-08-30] MEDS: Albuterol/Ipratropium 3.0-0.5 MG/3 ML Neb Soln NEB SCH ×3 (07:14→14:28)
[2017-08-30] MEDS: Nicotine 14 MG/24 Hr Patch TRDERM SCH (08:05)
[2017-08-30] MEDS: predniSONE 20 MG Tab PO SCH ×2 (08:05→15:18)
[2017-08-30] MEDS: Metoprolol Tartrate 50 MG Tab PO SCH (08:06)
[2017-08-30] MEDS: Lisinopril 10 MG Tab PO SCH (08:06)
[2017-08-30] MEDS: Enoxaparin 40 MG/0.4 ML Syringe SUBCUT SCH (08:06)
[2017-08-30] MEDS: amLODIPine 2.5 MG Tab PO SCH (08:06)
--- NOTE | 2017-08-30 14:26 | PCM.DCSUM1 ---
Discharge Summary - Hospital Course Brief History: 82-year-old female with history of tobacco dependence and COPD who presented to the clinic with cough, shortness of breath and was directly admitted for management of bilateral pneumonia with hypoxic respiratory failure. - Discharge Data Discharge Date: 08/30/17 Discharge Disposition: Home, Self-Care 01 Condition: Good - Discharge Diagnosis/Problem(s) (1) Pneumonia of both lower lobes SNOMED Code(s): 445508590 ICD Code: J18.9 - PNEUMONIA, UNSPECIFIED ORGANISM Status: Acute Qualifiers: Pneumonia type: due to unspecified organism Qualified Code(s): J18.9 - Pneumonia, unspecified organism (2) Acute respiratory failure with hypoxia SNOMED Code(s): 43590171 ICD Code: J96.01 - ACUTE RESPIRATORY FAILURE WITH HYPOXIA Status: Acute (3) Bladder cancer SNOMED Code(s): 583390303 ICD Code: C67.9 - MALIGNANT NEOPLASM OF BLADDER, UNSPECIFIED Status: Chronic Qualifiers: Bladder location: unspecified site Qualified Code(s): C67.9 - Malignant neoplasm of bladder, unspecified (4) Tobacco dependence SNOMED Code(s): 18961415 ICD Code: F17.200 - NICOTINE DEPENDENCE, UNSPECIFIED, UNCOMPLICATED Status : Chronic - Patient Summary/Data Hospital Course: Nsireen presented to the clinic with cough and shortness of breath. Workup in the clinic was suggestive of bilateral pneumonia with hypoxic respiratory failure. She was directly admitted for further management. She was initially started on levofloxacin for antibiotic coverage as well as IV steroids. She required supplemental oxygen. Over the first 24 hours she remained stable and had a significant supplemental oxygen requirement but was not improving. I elected to add ceftriaxone and continue this for a couple of days. With the second antibiotic she showed slow but steady improvement. We were able to transition her to oral steroids and then to oral levofloxacin. Ceftriaxone was discontinued after 3 days. She has remained stable from respiratory standpoint after this was discontinued. We are able to wean her off supplemental oxygen over the course of the hospital stay. She has been up and walking around and walking a fair distance without significant shortness of breath or hypoxia. She does still have a mild cough but this has been steadily improving. Her cultures have not grown a specific bacteria. She has been afebrile and her vital signs have been stable. Now that she is off oxygen I believe she is safe for outpatient management. She'll be discharged home. She would benefit from close clinic follow-up to ensure that she continues to improve. She will have 3 more days of levofloxacin and 3 days of prednisone once daily. - Patient Instructions Diet: Regular Diet as Tolerated Activity: As Tolerated Showering/Bathing: May Shower Notify Provider of: Fever, Increased Pain, Nausea and/or Vomiting Other/Special Instructions: 1. You were in the hospital for management of bilateral pneumonia. We did not determine the cause of bacteria. You have been improving with your levofloxacin therapy as well as steroids. I recommend 3 additional doses of levofloxacin. This is an antibiotic and you should take it once daily at about 3 PM. You should also take prednisone once daily in the morning. This is an anti-inflammatory that will help reduce the inflammation from the infection. 2. Please continue your other medications as previously prescribed. 3. If you have not had a bowel movement by this evening use Miralax tonight. If you still have not had a bowel movement by tomorrow morning take another dose of the medication. You can do this twice daily until you have a bowel movement. 4. Please seek medical attention if you develop fever greater than 101, have sudden worsening of your shortness of breath or if you develop chest pain/pressure - Discharge Plan Prescriptions/Med Rec: Levofloxacin 750 mg PO Q24H #3 tablet Prednisone [IJD: predniSONE] 20 mg PO DAILY #3 tablet Home Medications: Home Meds Metoprolol Tartrate [Lopressor] 50 mg PO BID 04/10/17 [History] Simvastatin [Zocor] 40 mg PO BEDTIME 04/10/17 [History] amLODIPine [Norvasc] 2.5 mg PO BID 04/10/17 [History] Lisinopril [Prinivil] 10 mg PO DAILY #30 tablet 04/15/17 [Rx] Levofloxacin 750 mg PO Q24H #3 tablet 08/30/17 [Rx] Prednisone [IJD: predniSONE] 20 mg PO DAILY #3 tablet 08/30/17 [Rx] Patient Handouts: Levofloxacin tablets, Community-Acquired Pneumonia, Adult Referrals: Remington Martinez MD [Physician] - (f/u in 1 week - f/u hospital stay for pneumonia) - Discharge Summary/Plan Comment DC Time >30 min.: No (25) - Patient Data Vitals - Most Recent: Last Vital Signs Temp 36.4 C 08/30/17 12:26 Pulse 90 08/30/17 12:26 Resp 20 08/30/17 12:26 BP 114/57 L 08/30/17 12:26 Pulse Ox 85 L 08/30/17 12:26 Weight - Most Recent: 53.1 kg I&O - Last 24 hours: Intake & Output 08/29/17 08/30/17 08/30/17 22:59 06:59 14:59 Intake Total 600 680 Balance 600 680 Med Orders - Current: Current Medications Acetaminophen (Tylenol) 650 mg RECTAL Q4H PRN PRN Reason: Mild pain/fever Acetaminophen (Tylenol) 650 mg PO Q4H PRN PRN Reason: Pain (Mild 1-3)/fever Albuterol (Proventil Neb Soln) 2.5 mg NEB Q4H PRN PRN Reason: Shortness Of Breath/wheezing Albuterol/Ipratropium (Duoneb 3.0-0.5 Mg/3 Ml) 3 ml NEB QIDRT [facility] Last Admin: 08/30/17 10:33 Dose: 3 ml Amlodipine Besylate (Norvasc) 2.5 mg PO BID [facility] Last Admin: 08/30/17 08:06 Dose: 2.5 mg Benzonatate (Tessalon Perles) 100 mg PO TID PRN PRN Reason: Cough Last Admin: 08/25/17 22:36 Dose: 100 mg Bisacodyl (Dulcolax) 10 mg RECTAL ONETIME ONE Stop: 08/30/17 14:19 Enoxaparin Sodium (Lovenox) 40 mg SUBCUT DAILY [facility] Last Admin: 08/30/17 08:06 Dose: 40 mg Guaifenesin/Dextromethorphan (Robitussin Dm) 10 ml PO Q4H PRN PRN Reason: Cough Last Admin: 08/27/17 21:09 Dose: 10 ml Levofloxacin 250 mg/ (Levofloxacin 500 mg) 750 mg PO Q24H [facility] Last Admin: 08/29/17 15:22 Dose: 750 mg Lisinopril (Prinivil) 10 mg PO DAILY [facility] Last Admin: 08/30/17 08:06 Dose: 10 mg Metoprolol Tartrate (Lopressor) 50 mg PO BID [facility] Last Admin: 08/30/17 08:06 Dose: 50 mg Nicotine (Habitrol) 14 mg TRDERM DAILY [facility] Last Admin: 08/30/17 08:05 Dose: 14 mg Ondansetron HCl (Zofran Odt) 4 mg PO Q6H PRN PRN Reason: Nausea able to take PO Ondansetron HCl (Zofran) 4 mg IV Q6H PRN PRN Reason: Nausea/Vomiting Prednisone (Prednisone) 20 mg PO BIDAC [facility] Last Admin: 08/30/17 08:05 Dose: 20 mg Senna/Docusate Sodium (Senna Plus) 1 tab PO BID PRN PRN Reason: Constipation Last Admin: 08/29/17 20:54 Dose: 1 tab Simvastatin (Zocor) 40 mg PO BEDTIME [facility] Last Admin: 08/29/17 20:50 Dose: 40 mg Sodium Chloride (Saline Flush) 10 ml FLUSH ASDIRECTED PRN PRN Reason: Keep Vein Open Last Admin: 08/26/17 13:31 Dose: 10 ml Discontinued Medications Albuterol/Ipratropium (Duoneb 3.0-0.5 Mg/3 Ml) 3 ml NEB ONETIME ONE Stop: 08/25/17 16:01 Last Admin: 08/25/17 16:13 Dose: 3 ml Enoxaparin Sodium (Lovenox) 30 mg SUBCUT DAILY [facility] Last Admin: 08/26/17 08:18 Dose: 30 mg Levofloxacin/Dextrose 750 mg/ (Premix) 150 mls @ 100 mls/hr IV Q48H [facility] Last Admin: 08/25/17 16:17 Dose: 100 mls/hr Sodium Chloride (Normal Saline) 1,000 mls @ 125 mls/hr IV ASDIRECTED [facility] Last Admin: 08/26/17 02:23 Dose: 125 mls/hr Sodium Chloride (Normal Saline) 500 mls @ 999 mls/hr IV .BOLUS ONE Stop: 08/25/17 16:30 Last Admin: 08/25/17 16:08 Dose: 999 mls/hr Ceftriaxone Sodium 1 gm/ (Sodium Chloride) 50 mls @ 100 mls/hr IV Q24H [facility] Stop: 08/28/17 12:00 Last Admin: 08/28/17 09:08 Dose: 100 mls/hr Levofloxacin/Dextrose 750 mg/ (Premix) 150 mls @ 100 mls/hr IV Q24H [facility] Prednisone (Prednisone) 40 mg PO ONETIME ONE Stop: 08/25/17 16:01 Last Admin: 08/25/17 16:16 Dose: 40 mg - Exam Quality Assessment: Denies: Supplemental Oxygen General: Reports: Alert, Oriented, Cooperative, No Acute Distress Lungs: Reports: Normal Respiratory Effort Cardiovascular: Reports: Regular Rate, Regular Rhythm Extremities: No Pedal Edema *Q Meaningful Use (DIS) - VTE *Q VTE Criteria *Q: - Stroke *Q Stroke Criteria *Q: - AMI *Q AMI Criteria *Q:
[2017-08-30] MEDS ORDERED: Bisacodyl 10 MG Supp RECTAL ONE (14:45)
[2017-08-30 14:52] VITALS: BP 136/52
== END 2017-08-30 15:35 | disposition home or self-care (01) | DRG 193 ==
LOC: JP.ICU 14:19 → JP.MS 08-28 14:15
PROVIDERS: ADMIT Internal Medicine; ATTEND Internal Medicine
DX: J18.9 Pneumonia, unspecified organism (principal); J96.01 Acute respiratory failure with hypoxia; F17.210 Nicotine dependence, cigarettes, uncomplicated; C67.9 Malignant neoplasm of bladder, unspecified; I10 Essential (primary) hypertension; I25.10 Atherosclerotic heart disease of native coronary artery without angina pectoris; H91.90 Unspecified hearing loss, unspecified ear; H54.7 Unspecified visual loss; Z79.52 Long term (current) use of systemic steroids; Z88.1 Allergy status to other antibiotic agents; Z88.8 Allergy status to other drugs, medicaments and biological substances; E78.00 Pure hypercholesterolemia, unspecified
CPT/HCPCS: 36415; 80048; 85027; 87070; 87205; 94640; 94762; A9270-GY; J0696; J1650; J1956; J7030; J7050; J7620